=== PATIENT | female | born 1950 | race Native Hawaiian/Other Pacific Islander ===

== ENCOUNTER 2016-01-30 08:44 | Inpatient (IN) | payer OTHER ==
[~2016-01-30 08:44] MED LIST: BENZ1TAB43 PO; BUDE1AER5 INH; BUDEPRION150 MG PO; IPRASOL5 IN; KLONOPIN1 MG PO; LAXATIVE1 TAB PO; NASONEX50 MCG/AC; NORVASC10 MG PO; OXYBUTYNIN5 M1 PO; POLY3350 PO; SIMVASTATIN40 MG PO; TIOTCAP2 INH; TOVIAZ4 MG OR; TRAM50TA PO; TRAZODONE100 MG PO; VENTOLIN HFA IN; [UNRECOGNIZED DRUG - CODE] PO
== END 2016-03-01 08:00 | disposition still patient (30) ==
LOC: PAVA 08:44
PROVIDERS: ADMIT Family Medicine
DX: Z51.89 Encounter for other specified aftercare (principal)

== ENCOUNTER 2016-03-01 09:00 | Inpatient (IN) | payer OTHER | END 2016-04-01 08:43 | disposition still patient (30) | LOC: PAVA 09:00 | PROVIDERS: ADMIT Family Medicine | DX: Z51.89 Encounter for other specified aftercare (principal) ==

== ENCOUNTER 2016-03-06 06:00 | Outpatient (CLI) | payer OTHER | END 2016-03-06 07:00 | disposition home or self-care (01) | LOC: LAB 06:00 | DX: E11.9 Type 2 diabetes mellitus without complications (principal); K21.9 Gastro-esophageal reflux disease without esophagitis; I25.10 Atherosclerotic heart disease of native coronary artery without angina pectoris | CPT/HCPCS: 36415; 83036 ==

== ENCOUNTER 2016-04-01 09:28 | Inpatient (IN) | payer OTHER | END 2016-04-29 08:20 | disposition still patient (30) | LOC: PAVA 09:28 | PROVIDERS: ADMIT Family Medicine | DX: Z51.89 Encounter for other specified aftercare (principal) ==

== ENCOUNTER 2016-04-25 13:31 | Outpatient (CLI) | payer OTHER | END 2016-04-25 19:02 | disposition home or self-care (01) | LOC: RAD 13:31 → ED 13:31 | DX: S82.192A Other fracture of upper end of left tibia, initial encounter for closed fracture (principal); M25.562 Pain in left knee; M25.462 Effusion, left knee ==

== ENCOUNTER 2016-04-29 08:54 | Inpatient (IN) | payer OTHER | END 2016-05-30 08:05 | disposition still patient (30) | LOC: PAVA 08:54 | PROVIDERS: ADMIT Family Medicine | DX: Z51.89 Encounter for other specified aftercare (principal) | CPT/HCPCS: 97163 ==

== ENCOUNTER 2016-05-01 04:30 | Outpatient (CLI) | payer OTHER ==
[2016-05-01 05:45] LABS: PLATELET COUNT 194 K/uL (152-353)
[2016-05-01 06:01] LABS: SODIUM 139 mmol/L (136-145)
== END 2016-05-01 19:10 | disposition home or self-care (01) ==
LOC: LAB 04:30
PROVIDERS: Family Medicine
DX: R53.83 Other fatigue (principal); R50.81 Fever presenting with conditions classified elsewhere
CPT/HCPCS: 80053; 80164; 81000; 85027; 87804

== ENCOUNTER 2016-05-19 10:41 | Outpatient (CLI) | payer OTHER | END 2016-05-19 19:14 | disposition home or self-care (01) | LOC: LAB 10:41 | DX: I10 Essential (primary) hypertension (principal); N39.0 Urinary tract infection, site not specified; E55.9 Vitamin D deficiency, unspecified; R82.5 Elevated urine levels of drugs, medicaments and biological substances; R82.99 Other abnormal findings in urine | CPT/HCPCS: 81000; 82306; 82607; 87077; 87086; 87088; 87186 ==

== ENCOUNTER 2016-05-25 14:05 | Outpatient (CLI) | payer OTHER | END 2016-05-25 19:30 | disposition home or self-care (01) | LOC: RAD 14:05 | DX: S82.192A Other fracture of upper end of left tibia, initial encounter for closed fracture (principal) ==

== ENCOUNTER 2016-05-26 19:20 | Outpatient (CLI) | payer OTHER | END 2016-05-26 21:00 | LOC: RAD 19:20 | DX: M25.562 Pain in left knee (principal); S82.115A Nondisplaced fracture of left tibial spine, initial encounter for closed fracture ==

== ENCOUNTER 2016-05-30 09:57 | Inpatient (IN) | payer OTHER | END 2016-06-29 08:33 | disposition still patient (30) | LOC: PAVA 09:57 | PROVIDERS: ADMIT Family Medicine | DX: Z51.89 Encounter for other specified aftercare (principal) ==

== ENCOUNTER 2016-06-01 08:11 | Outpatient (CLI) | payer OTHER | END 2016-06-01 09:11 | disposition home or self-care (01) | LOC: LAB 08:11 | DX: E11.9 Type 2 diabetes mellitus without complications (principal) | CPT/HCPCS: 36415; 83036 ==

== ENCOUNTER 2016-06-23 10:48 | Outpatient (CLI) | payer OTHER | END 2016-06-23 19:44 | disposition home or self-care (01) | LOC: RAD 10:48 | DX: S82.115A Nondisplaced fracture of left tibial spine, initial encounter for closed fracture (principal); M25.562 Pain in left knee ==

== ENCOUNTER 2016-06-27 01:19 | Outpatient (CLI) | payer OTHER | END 2016-06-27 19:07 | disposition home or self-care (01) | LOC: LAB 01:19 | DX: Z16.24 Resistance to multiple antibiotics (principal) | CPT/HCPCS: 87081 ==

== ENCOUNTER 2016-06-29 09:00 | Inpatient (IN) | payer OTHER | END 2016-07-30 08:13 | disposition still patient (30) | LOC: PAVA 09:00 | PROVIDERS: ADMIT Family Medicine | DX: Z51.89 Encounter for other specified aftercare (principal) ==

== ENCOUNTER 2016-07-30 08:33 | Inpatient (IN) | payer OTHER | END 2016-08-29 14:59 | disposition still patient (30) | LOC: PAVA 08:33 | PROVIDERS: ADMIT Family Medicine | DX: Z51.89 Encounter for other specified aftercare (principal) ==

== ENCOUNTER 2016-08-04 12:49 | Outpatient (CLI) | payer OTHER | END 2016-08-04 19:11 | disposition home or self-care (01) | LOC: RAD 12:49 | DX: S82.115A Nondisplaced fracture of left tibial spine, initial encounter for closed fracture (principal); M25.562 Pain in left knee ==

== ENCOUNTER 2016-08-29 15:17 | Inpatient (IN) | payer OTHER | END 2016-09-29 08:42 | disposition still patient (30) | LOC: PAVA 15:17 | PROVIDERS: ADMIT Family Medicine | DX: Z51.89 Encounter for other specified aftercare (principal) ==

== ENCOUNTER 2016-08-31 06:20 | Outpatient (CLI) | payer OTHER | END 2016-08-31 07:20 | disposition home or self-care (01) | LOC: LAB 06:20 | DX: E11.9 Type 2 diabetes mellitus without complications (principal) | CPT/HCPCS: 83036 ==

== ENCOUNTER 2016-09-29 09:29 | Inpatient (IN) | payer OTHER | END 2016-10-30 08:13 | disposition still patient (30) | LOC: PAVA 09:29 → EDBD 10-30 08:13 → PAVA 10-30 08:13 | PROVIDERS: ADMIT Family Medicine | DX: Z51.89 Encounter for other specified aftercare (principal) ==

== ENCOUNTER 2016-09-29 14:38 | Outpatient (CLI) | payer OTHER | END 2016-09-29 19:11 | disposition home or self-care (01) | LOC: RAD 14:38 | DX: Z01.818 Encounter for other preprocedural examination (principal); Z01.811 Encounter for preprocedural respiratory examination; Z01.810 Encounter for preprocedural cardiovascular examination ==

== ENCOUNTER 2016-09-30 07:36 | Outpatient (CLI) | payer OTHER ==
[2016-09-30 08:52] LABS: POTASSIUM 3.8 mmol/L (3.6-5.2); SODIUM 146 mmol/L (136-145)
[2016-09-30 09:12] LABS: PLATELET COUNT 184 K/uL (152-353)
== END 2016-09-30 19:41 | disposition home or self-care (01) ==
LOC: LABW 07:36 → RESP 09:00 → LABW 19:41
PROVIDERS: Family Medicine
DX: Z01.818 Encounter for other preprocedural examination (principal); Z01.811 Encounter for preprocedural respiratory examination; Z01.810 Encounter for preprocedural cardiovascular examination
CPT/HCPCS: 36415; 80053; 85027; 93005; 94640; 94664

== ENCOUNTER 2016-10-30 08:38 | Inpatient (IN) | payer OTHER | END 2016-11-29 09:10 | disposition still patient (30) | LOC: PAVA 08:38 → EDBD 11-29 09:10 → PAVA 11-29 09:10 | PROVIDERS: ADMIT Family Medicine | DX: Z51.89 Encounter for other specified aftercare (principal) ==

== ENCOUNTER 2016-11-02 06:14 | Outpatient (CLI) | payer OTHER ==
[2016-11-02 06:39] LABS: PLATELET COUNT 192 K/uL (152-353)
[2016-11-02 06:46] LABS: POTASSIUM 3.5 mmol/L (3.6-5.2)
== END 2016-11-02 18:57 | disposition home or self-care (01) ==
LOC: LAB 06:14 → EDBD 06:14 → LAB 18:57
PROVIDERS: Family Medicine
DX: Z79.899 Other long term (current) drug therapy (principal); Z51.81 Encounter for therapeutic drug level monitoring; Z13.220 Encounter for screening for lipoid disorders
CPT/HCPCS: 80053; 80061; 80164; 85027

== ENCOUNTER 2016-11-29 09:34 | Inpatient (IN) | payer OTHER | END 2016-12-30 10:27 | disposition still patient (30) | LOC: PAVA 09:34 → EDBD 09:34 → PAVA 12-30 10:27 | PROVIDERS: ADMIT Family Medicine ==

== ENCOUNTER 2016-11-30 06:22 | Outpatient (CLI) | payer OTHER | END 2016-11-30 07:25 | disposition home or self-care (01) | LOC: LAB 06:22 → EDBD 06:22 → LAB 07:25 | DX: E11.9 Type 2 diabetes mellitus without complications (principal) | CPT/HCPCS: 36415; 83036 ==

== ENCOUNTER 2016-12-30 12:54 | Inpatient (IN) | payer OTHER | END 2017-01-29 08:15 | disposition still patient (30) | LOC: PAVA 12:54 | PROVIDERS: ADMIT Family Medicine ==

== ENCOUNTER 2017-01-25 12:58 | Outpatient (CLI) | payer OTHER | END 2017-01-25 18:57 | disposition home or self-care (01) | LOC: RAD 12:58 | DX: M54.5 Low back pain (principal) ==

== ENCOUNTER 2017-01-29 09:13 | Inpatient (IN) | payer OTHER ==
[2017-02-19] MEDS ORDERED: ZANTAC 75 PO (15:24)
[2017-02-19] MEDS ORDERED: VESICARE5 MG PO (15:26)
[2017-02-19] MEDS ORDERED: TOPAMAX50 MG PO (15:26)
[2017-02-19] MEDS ORDERED: ZIPR80CA PO (15:27)
[2017-02-19] MEDS ORDERED: CETI10TA PO (15:28)
[2017-02-19] MEDS ORDERED: DENO60SO SC (15:29)
[2017-02-19] MEDS ORDERED: CYCL10TA35 PO (15:30)
[2017-02-19] MEDS ORDERED: TRAM50TA PO (15:32)
[2017-02-19] MEDS ORDERED: ARTIFI TEARS OP (15:32)
[2017-02-19] MEDS ORDERED: CLON0.5T36 PO (15:33)
[2017-02-19] MEDS ORDERED: DIVA250T2 PO (15:34)
[2017-02-19] MEDS ORDERED: DOCU100C10 PO (15:35)
[2017-02-19] MEDS ORDERED: DONE5TAB PO (15:35)
[2017-02-19] MEDS ORDERED: LEXAPRO20 MG PO (15:36)
[2017-02-19] MEDS ORDERED: GABA300C2 PO (15:37)
[2017-02-19] MEDS ORDERED: MOBIC15 MG PO (15:43)
[2017-02-19] MEDS ORDERED: METFTAB PO (15:44)
[2017-02-19] MEDS ORDERED: MAGNSUS68 PO (15:47)
[2017-02-19] MEDS ORDERED: PRED5TAB3 PO (15:48)
[2017-02-19] MEDS ORDERED: SEROQUEL100 MG PO (15:49)
[2017-02-19] MEDS ORDERED: FINGERSTIX (15:50)
== END 2017-03-01 08:35 | disposition still patient (30) ==
LOC: PAVA 09:13
PROVIDERS: ADMIT Family Medicine

== ENCOUNTER 2017-02-01 11:27 | Outpatient (CLI) | payer OTHER | END 2017-02-01 12:30 | disposition home or self-care (01) | LOC: RAD 11:27 | DX: M25.572 Pain in left ankle and joints of left foot (principal) ==

== ENCOUNTER 2017-03-01 09:18 | Inpatient (IN) | payer OTHER ==
[~2017-03-01 09:18] MED LIST changes: +ARTIFI TEARS OP; +CETI10TA PO; +CLON0.5T36 PO; +CYCL10TA35 PO; +DENO60SO SC; +DIVA250T2 PO; +DOCU100C10 PO; +DONE5TAB PO; +FINGERSTIX; +GABA300C2 PO; +LEXAPRO20 MG PO; +MAGNSUS68 PO; +METFTAB PO; +MOBIC15 MG PO; +PRED5TAB3 PO; +SEROQUEL100 MG PO; +TOPAMAX50 MG PO; +VESICARE5 MG PO; +ZANTAC 75 PO; +ZIPR80CA PO
== END 2017-04-01 08:35 | disposition still patient (30) ==
LOC: PAVA 09:18
PROVIDERS: ADMIT Family Medicine

== ENCOUNTER 2017-03-03 06:03 | Outpatient (CLI) | payer OTHER | END 2017-03-03 21:33 | disposition home or self-care (01) | LOC: LAB 06:03 | DX: R73.09 Other abnormal glucose (principal) | CPT/HCPCS: 83036 ==

== ENCOUNTER 2017-04-01 09:45 | Inpatient (IN) | payer OTHER | END 2017-04-29 08:10 | disposition still patient (30) | LOC: PAVA 09:45 | PROVIDERS: ADMIT Family Medicine ==

== ENCOUNTER 2017-04-29 09:11 | Inpatient (IN) | payer OTHER | END 2017-05-30 08:00 | disposition still patient (30) | LOC: PAVA 09:11 | PROVIDERS: ADMIT Family Medicine ==

== ENCOUNTER 2017-05-10 03:19 | Outpatient (CLI) | payer OTHER ==
[2017-05-10 03:33] LABS: PLATELET COUNT 172 K/uL (152-353)
[2017-05-10 04:58] LABS: POTASSIUM 3.9 mmol/L (3.6-5.2)
== END 2017-05-10 21:29 | disposition home or self-care (01) ==
LOC: LAB 03:19
PROVIDERS: Family Medicine
DX: J44.9 Chronic obstructive pulmonary disease, unspecified (principal); I10 Essential (primary) hypertension
CPT/HCPCS: 36415; 80053; 80164; 85027

== ENCOUNTER 2017-05-30 09:00 | Inpatient (IN) | payer OTHER | END 2017-06-29 08:14 | disposition still patient (30) | LOC: PAVA 09:00 | PROVIDERS: ADMIT Family Medicine ==

== ENCOUNTER 2017-05-31 06:14 | Outpatient (CLI) | payer OTHER | END 2017-05-31 23:31 | disposition home or self-care (01) | LOC: LABW 06:14 | DX: E11.9 Type 2 diabetes mellitus without complications (principal) | CPT/HCPCS: 83036 ==

== ENCOUNTER 2017-06-04 11:49 | Outpatient (CLI) | payer OTHER | END 2017-06-04 20:27 | disposition home or self-care (01) | LOC: LAB 11:49 | DX: Z79.899 Other long term (current) drug therapy (principal) | CPT/HCPCS: 36415; 83036 ==

== ENCOUNTER 2017-06-29 08:54 | Inpatient (IN) | payer OTHER | END 2017-07-30 08:23 | disposition still patient (30) | LOC: PAVA 08:54 | PROVIDERS: ADMIT Family Medicine ==

== ENCOUNTER 2017-07-30 08:49 | Inpatient (IN) | payer OTHER | END 2017-08-29 14:17 | disposition still patient (30) | LOC: PAVA 08:49 | PROVIDERS: ADMIT Family Medicine ==

== ENCOUNTER 2017-08-02 03:48 | Outpatient (CLI) | payer OTHER | END 2017-08-02 21:57 | disposition home or self-care (01) | LOC: LAB 03:48 | DX: Z51.81 Encounter for therapeutic drug level monitoring (principal) | CPT/HCPCS: 82310 ==

== ENCOUNTER 2017-08-29 14:38 | Inpatient (IN) | payer OTHER | END 2017-09-29 08:00 | disposition still patient (30) | LOC: PAVA 14:38 | PROVIDERS: ADMIT Family Medicine ==

== ENCOUNTER 2017-09-01 06:04 | Outpatient (CLI) | payer OTHER | END 2017-09-01 22:07 | disposition home or self-care (01) | LOC: LAB 06:04 | DX: E11.9 Type 2 diabetes mellitus without complications (principal) | CPT/HCPCS: 83036 ==

== ENCOUNTER 2017-09-29 09:00 | Inpatient (IN) | payer OTHER | END 2017-10-30 09:59 | disposition still patient (30) | LOC: PAVA 09:00 | PROVIDERS: ADMIT Family Medicine ==

== ENCOUNTER 2017-10-19 07:52 | Emergency (ER) | payer OTHER ==
[~2017-10-19] VITALS: Ht 167.6 cm; Wt 105.9 kg
[2017-10-19 07:52] VITALS: TEMP 97.5
[2017-10-19 09:35] LABS: PLATELET COUNT 186 K/uL (152-353)
[2017-10-19 10:03] LABS: POTASSIUM 3.8 mmol/L (3.6-5.2)
[2017-10-19 11:15] VITALS: BP 94/55
== END 2017-10-19 11:17 | disposition short-term general hospital (02) ==
LOC: ED 07:52
DX: S72.091A Other fracture of head and neck of right femur, initial encounter for closed fracture (principal); W18.39XA Other fall on same level, initial encounter; Y92.092 Bedroom in other non-institutional residence as the place of occurrence of the external cause
CPT/HCPCS: 36415; 80053; 85027; 96374; 96375; 99284; J1885; J2270

== ENCOUNTER 2017-10-27 06:04 | Outpatient (CLI) | payer OTHER | END 2017-10-27 23:52 | disposition home or self-care (01) | LOC: LAB 06:04 | DX: D64.9 Anemia, unspecified (principal) | CPT/HCPCS: 85014; 85018 ==

== ENCOUNTER 2017-10-30 10:15 | Inpatient (IN) | payer OTHER | END 2017-11-29 08:42 | disposition still patient (30) | LOC: PAVA 10:15 | PROVIDERS: ADMIT Family Medicine ==

== ENCOUNTER 2017-11-05 05:15 | Outpatient (CLI) | payer OTHER ==
[2017-11-05 14:40] LABS: PLATELET COUNT 432 K/uL (152-353)
[2017-11-05 14:42] LABS: POTASSIUM 4.2 mmol/L (3.6-5.2)
== END 2017-11-05 23:23 | disposition home or self-care (01) ==
LOC: LAB 05:15
PROVIDERS: Family Medicine
DX: Z01.812 Encounter for preprocedural laboratory examination (principal); I25.10 Atherosclerotic heart disease of native coronary artery without angina pectoris; E11.9 Type 2 diabetes mellitus without complications; Z01.810 Encounter for preprocedural cardiovascular examination
CPT/HCPCS: 36415; 80053; 80061; 80164; 84443; 85027; 85610; 93005

== ENCOUNTER 2017-11-05 08:31 | Outpatient (CLI) | payer OTHER | END 2017-11-05 23:24 | disposition home or self-care (01) | LOC: RAD 08:31 | DX: Z01.810 Encounter for preprocedural cardiovascular examination (principal) ==

== ENCOUNTER 2017-11-12 16:38 | Emergency (ER) | payer OTHER ==
[~2017-11-12] VITALS: Ht 167.6 cm; Wt 105.7 kg
[2017-11-12 18:26] LABS: PLATELET COUNT 244 K/uL (152-353)
[2017-11-12 20:07] LABS: PARTIAL THROMBOPLASTIN TIME 26.4 SECONDS (24.5-33.6)
[2017-11-12 21:05] VITALS: BP 112/53; TEMP 98.6
== END 2017-11-12 21:07 ==
LOC: ED 16:38
PROVIDERS: Family Medicine
DX: L76.22 Postprocedural hemorrhage of skin and subcutaneous tissue following other procedure (principal); Y83.8 Other surgical procedures as the cause of abnormal reaction of the patient, or of later complication, without mention of misadventure at the time of the procedure; Y92.89 Other specified places as the place of occurrence of the external cause; D62 Acute posthemorrhagic anemia; I10 Essential (primary) hypertension; E11.9 Type 2 diabetes mellitus without complications; F03.90 Unspecified dementia, unspecified severity, without behavioral disturbance, psychotic disturbance, mood disturbance, and anxiety
CPT/HCPCS: 36415; 80053; 85027; 85610; 85730; 99284

== ENCOUNTER 2017-11-13 08:06 | Outpatient (CLI) | payer OTHER ==
[2017-11-13 08:36] LABS: PLATELET COUNT 252 K/uL (152-353)
== END 2017-11-13 19:03 | disposition home or self-care (01) ==
LOC: LAB 08:06
PROVIDERS: Family Medicine
DX: D64.89 Other specified anemias (principal)
CPT/HCPCS: 36415; 85027

== ENCOUNTER 2017-11-18 05:53 | Outpatient (CLI) | payer OTHER ==
[2017-11-18 06:29] LABS: PLATELET COUNT 360 K/uL (152-353)
== END 2017-11-18 22:06 | disposition home or self-care (01) ==
LOC: LAB 05:53
PROVIDERS: Family Medicine
DX: D64.9 Anemia, unspecified (principal)
CPT/HCPCS: 85027

== ENCOUNTER 2017-11-20 16:07 | Outpatient (CLI) | payer OTHER ==
[2017-11-20 17:29] LABS: PLATELET COUNT 304 K/uL (152-353)
== END 2017-11-20 19:57 | disposition home or self-care (01) ==
LOC: LAB 16:07
PROVIDERS: Family Medicine
DX: D64.9 Anemia, unspecified (principal)
CPT/HCPCS: 85027

== ENCOUNTER 2017-11-22 15:32 | Emergency (ER) | payer OTHER ==
[~2017-11-22] VITALS: Ht 167.6 cm; Wt 105.7 kg
[2017-11-22 15:30] VITALS: TEMP 97.9
[2017-11-22 16:04] LABS: PLATELET COUNT 343 K/uL (152-353)
[2017-11-22 16:10] LABS: POTASSIUM 4.4 mmol/L (3.6-5.2)
[2017-11-22 17:35] VITALS: BP 107/53
== END 2017-11-22 17:35 | disposition short-term general hospital (02) ==
LOC: ED 15:32
DX: T81.89XA Other complications of procedures, not elsewhere classified, initial encounter (principal); Z96.641 Presence of right artificial hip joint
CPT/HCPCS: 36415; 80053; 83605; 85027; 99284

== ENCOUNTER 2017-11-22 17:39 | Outpatient (CLI) | payer OTHER | END 2017-11-22 18:57 | disposition short-term general hospital (02) | LOC: AMB 17:39 | DX: T81.89XA Other complications of procedures, not elsewhere classified, initial encounter (principal); Z96.641 Presence of right artificial hip joint | CPT/HCPCS: A0425; A0427 ==

== ENCOUNTER 2017-11-29 09:07 | Inpatient (IN) | payer OTHER | END 2017-12-10 10:54 | disposition short-term general hospital (02) | LOC: PAVA 09:07 | PROVIDERS: ADMIT Family Medicine ==

== ENCOUNTER 2018-01-19 13:20 | Inpatient (IN) | payer OTHER | END 2018-01-29 08:34 | disposition still patient (30) | LOC: PAVB 13:20 | PROVIDERS: ADMIT Family Medicine ==

== ENCOUNTER 2018-01-20 06:07 | Outpatient (CLI) | payer OTHER ==
[2018-01-20 06:27] LABS: PLATELET COUNT 240 K/uL (152-353)
[2018-01-20 07:12] LABS: POTASSIUM 4.1 mmol/L (3.6-5.2)
== END 2018-01-20 19:09 | disposition home or self-care (01) ==
LOC: LAB 06:07
PROVIDERS: Family Medicine
DX: I10 Essential (primary) hypertension (principal); Z51.81 Encounter for therapeutic drug level monitoring; Z16.24 Resistance to multiple antibiotics; Z79.899 Other long term (current) drug therapy
CPT/HCPCS: 36415; 80053; 80164; 82306; 83036; 83540; 83735; 85027; 87081

== ENCOUNTER 2018-01-27 05:02 | Outpatient (CLI) | payer OTHER | END 2018-01-27 19:18 | disposition home or self-care (01) | LOC: LAB 05:02 | PROVIDERS: Family Medicine | DX: Z51.81 Encounter for therapeutic drug level monitoring (principal) | CPT/HCPCS: 80061 ==

== ENCOUNTER 2018-01-29 09:24 | Inpatient (IN) | payer OTHER | END 2018-03-01 11:06 | disposition still patient (30) | LOC: PAVB 09:24 | PROVIDERS: ADMIT Family Medicine ==

== ENCOUNTER 2018-01-31 06:29 | Outpatient (CLI) | payer OTHER | END 2018-01-31 20:25 | disposition home or self-care (01) | LOC: LAB 06:29 | DX: M81.0 Age-related osteoporosis without current pathological fracture (principal) | CPT/HCPCS: 82310 ==

== ENCOUNTER 2018-03-01 11:30 | Inpatient (IN) | payer OTHER | END 2018-04-01 10:56 | disposition still patient (30) | LOC: PAVB 11:30 | PROVIDERS: ADMIT Family Medicine ==

== ENCOUNTER 2018-03-02 16:01 | Outpatient (CLI) | payer OTHER | END 2018-03-02 21:37 | disposition home or self-care (01) | LOC: LAB 16:01 | DX: R39.15 Urgency of urination (principal); M54.5 Low back pain | CPT/HCPCS: 81000 ==

== ENCOUNTER 2018-04-01 11:22 | Inpatient (IN) | payer OTHER | END 2018-04-29 10:21 | disposition still patient (30) | LOC: PAVB 11:22 | PROVIDERS: ADMIT Family Medicine ==

== ENCOUNTER 2018-04-04 08:17 | Outpatient (CLI) | payer OTHER | END 2018-04-04 20:47 | disposition home or self-care (01) | LOC: LAB 08:17 | DX: E11.21 Type 2 diabetes mellitus with diabetic nephropathy (principal) | CPT/HCPCS: 36415; 83036 ==

== ENCOUNTER 2018-04-29 11:19 | Inpatient (IN) | payer OTHER | END 2018-05-30 10:41 | disposition still patient (30) | LOC: PAVB 11:19 | PROVIDERS: ADMIT Family Medicine ==

== ENCOUNTER 2018-05-30 11:30 | Inpatient (IN) | payer OTHER | END 2018-06-29 11:18 | disposition still patient (30) | LOC: PAVB 11:30 | PROVIDERS: ADMIT Family Medicine ==

== ENCOUNTER 2018-06-18 11:23 | Outpatient (CLI) | payer OTHER | END 2018-06-18 22:44 | disposition home or self-care (01) | LOC: RAD 11:23 | DX: M25.572 Pain in left ankle and joints of left foot (principal) ==

== ENCOUNTER 2018-06-18 14:26 | Outpatient (CLI) | payer OTHER | END 2018-06-18 22:44 | disposition home or self-care (01) | LOC: RAD 14:26 | DX: M25.472 Effusion, left ankle (principal); M25.572 Pain in left ankle and joints of left foot ==

== ENCOUNTER 2018-06-29 12:37 | Inpatient (IN) | payer OTHER | END 2018-07-30 08:40 | disposition still patient (30) | LOC: PAVB 12:37 | PROVIDERS: ADMIT Family Medicine | DX: Z51.89 Encounter for other specified aftercare (principal) ==

== ENCOUNTER 2018-06-30 06:36 | Outpatient (CLI) | payer OTHER ==
[2018-06-30 07:58] LABS: PLATELET COUNT 183 K/uL (152-353)
== END 2018-06-30 19:46 | disposition home or self-care (01) ==
LOC: LAB 06:36
PROVIDERS: Family Medicine
DX: E11.9 Type 2 diabetes mellitus without complications (principal); D50.8 Other iron deficiency anemias
CPT/HCPCS: 80053; 80164; 82306; 83036; 83540; 83735; 85027

== ENCOUNTER 2018-07-27 06:20 | Outpatient (CLI) | payer OTHER | END 2018-07-27 20:58 | disposition home or self-care (01) | LOC: LAB 06:20 | DX: Z51.81 Encounter for therapeutic drug level monitoring (principal) | CPT/HCPCS: 80164 ==

== ENCOUNTER 2018-07-30 09:37 | Inpatient (IN) | payer OTHER | END 2018-08-29 09:39 | disposition still patient (30) | LOC: PAVB 09:37 | PROVIDERS: ADMIT Family Medicine ==

== ENCOUNTER 2018-08-03 05:40 | Outpatient (CLI) | payer OTHER | END 2018-08-03 23:23 | disposition home or self-care (01) | LOC: LAB 05:40 | DX: E87.6 Hypokalemia (principal) | CPT/HCPCS: 82310 ==

== ENCOUNTER 2018-08-24 21:49 | Outpatient (CLI) | payer OTHER | END 2018-08-24 23:57 | disposition home or self-care (01) | LOC: LAB 21:49 | DX: M54.6 Pain in thoracic spine (principal) | CPT/HCPCS: 81000 ==

== ENCOUNTER 2018-08-29 11:33 | Inpatient (IN) | payer OTHER | END 2018-09-29 10:36 | disposition still patient (30) | LOC: PAVB 11:33 | PROVIDERS: ADMIT Family Medicine ==

== ENCOUNTER 2018-09-29 11:26 | Inpatient (IN) | payer OTHER | END 2018-10-30 16:27 | disposition still patient (30) | LOC: PAVB 11:26 | PROVIDERS: ADMIT Family Medicine ==

== ENCOUNTER 2018-10-05 03:20 | Outpatient (CLI) | payer OTHER | END 2018-10-05 23:41 | disposition home or self-care (01) | LOC: LAB 03:20 | DX: E11.21 Type 2 diabetes mellitus with diabetic nephropathy (principal) | CPT/HCPCS: 36415; 83036 ==

== ENCOUNTER 2018-10-30 17:14 | Inpatient (IN) | payer OTHER | END 2018-11-29 09:22 | disposition still patient (30) | LOC: PAVB 17:14 | PROVIDERS: ADMIT Family Medicine ==

== ENCOUNTER 2018-11-29 11:11 | Inpatient (IN) | payer OTHER | END 2018-12-30 08:15 | disposition still patient (30) | LOC: PAVB 11:11 → PAVA 12-16 11:11 | PROVIDERS: ADMIT Family Medicine ==

== ENCOUNTER 2018-12-30 10:09 | Inpatient (IN) | payer OTHER | END 2019-01-29 08:00 | disposition still patient (30) | LOC: PAVA 10:09 | PROVIDERS: ADMIT Family Medicine ==

== ENCOUNTER 2019-01-29 09:00 | Inpatient (IN) | payer OTHER | END 2019-03-01 07:57 | disposition still patient (30) | LOC: PAVA 09:00 | PROVIDERS: ADMIT Family Medicine ==

== ENCOUNTER 2019-01-31 05:14 | Outpatient (CLI) | payer OTHER | END 2019-01-31 20:12 | disposition home or self-care (01) | LOC: LAB 05:14 | DX: E87.6 Hypokalemia (principal) | CPT/HCPCS: 82310 ==

== ENCOUNTER 2019-03-01 08:01 | Inpatient (IN) | payer OTHER | END 2019-04-01 09:27 | disposition still patient (30) | LOC: PAVA 08:01 | PROVIDERS: ADMIT Family Medicine ==

== ENCOUNTER 2019-04-01 06:22 | Outpatient (CLI) | payer OTHER | END 2019-04-01 20:38 | disposition home or self-care (01) | LOC: LABW 06:22 | DX: E11.9 Type 2 diabetes mellitus without complications (principal) | CPT/HCPCS: 83036 ==

== ENCOUNTER 2019-04-01 09:33 | Inpatient (IN) | payer OTHER | END 2019-04-30 12:43 | disposition still patient (30) | LOC: PAVA 09:33 | PROVIDERS: ADMIT Family Medicine ==

== ENCOUNTER 2019-04-30 12:48 | Inpatient (IN) | payer OTHER | END 2019-05-31 08:56 | disposition still patient (30) | LOC: PAVA 12:48 | PROVIDERS: ADMIT Family Medicine ==

== ENCOUNTER 2019-05-31 09:01 | Inpatient (IN) | payer OTHER | END 2019-06-30 07:57 | disposition still patient (30) | LOC: PAVA 09:01 | PROVIDERS: ADMIT Family Medicine ==

== ENCOUNTER 2019-06-30 08:18 | Inpatient (IN) | payer OTHER | END 2019-07-31 08:09 | disposition still patient (30) | LOC: PAVA 08:18 | PROVIDERS: ADMIT Family Medicine | CPT/HCPCS: 87635; U0002 ==

== ENCOUNTER 2019-07-03 06:29 | Outpatient (CLI) | payer OTHER ==
[2019-07-03 07:19] LABS: POTASSIUM 4.7 mmol/L (3.6-5.2)
[2019-07-03 08:19] LABS: PLATELET COUNT 160 K/uL (152-353)
== END 2019-07-03 19:21 | disposition home or self-care (01) ==
LOC: LAB 06:29
PROVIDERS: Family Medicine
DX: I10 Essential (primary) hypertension (principal); E11.9 Type 2 diabetes mellitus without complications; Z79.899 Other long term (current) drug therapy; I25.10 Atherosclerotic heart disease of native coronary artery without angina pectoris
CPT/HCPCS: 80053; 80164; 82306; 83036; 83540; 83735; 85027

== ENCOUNTER 2019-07-15 21:26 | Outpatient (CLI) | payer OTHER | END 2019-07-15 21:47 | disposition home or self-care (01) | LOC: RAD 21:26 | DX: M25.552 Pain in left hip (principal); W19.XXXA Unspecified fall, initial encounter ==

== ENCOUNTER 2019-07-31 08:14 | Inpatient (IN) | payer OTHER | END 2019-08-30 08:24 | disposition still patient (30) | LOC: PAVA 08:14 | PROVIDERS: ADMIT Family Medicine | DX: S72.142D Displaced intertrochanteric fracture of left femur, subsequent encounter for closed fracture with routine healing (principal); U07.1 COVID-19; J44.9 Chronic obstructive pulmonary disease, unspecified; R13.11 Dysphagia, oral phase; M62.81 Muscle weakness (generalized); Z47.1 Aftercare following joint replacement surgery; M25.652 Stiffness of left hip, not elsewhere classified; M25.552 Pain in left hip | CPT/HCPCS: 87635; U0002 ==

== ENCOUNTER 2019-08-28 11:15 | Outpatient (CLI) | payer OTHER ==
[~2019-08-28 11:15] MED LIST changes: +ALBU90AE13 INH; -VENTOLIN HFA IN
== END 2019-08-28 16:00 | disposition home or self-care (01) ==
LOC: RAD 11:15
DX: R05 Cough (principal)

== ENCOUNTER 2019-08-30 08:29 | Inpatient (IN) | payer OTHER ==
[~2019-08-30 08:29] MED LIST changes: -ALBU90AE13 INH; +VENTOLIN HFA IN
== END 2019-09-30 08:21 | disposition still patient (30) ==
LOC: PAVA 08:29
PROVIDERS: ADMIT Family Medicine
DX: S72.142D Displaced intertrochanteric fracture of left femur, subsequent encounter for closed fracture with routine healing (principal); U07.1 COVID-19; J44.9 Chronic obstructive pulmonary disease, unspecified; R13.11 Dysphagia, oral phase; M62.81 Muscle weakness (generalized); Z47.1 Aftercare following joint replacement surgery; M25.652 Stiffness of left hip, not elsewhere classified; M25.552 Pain in left hip
CPT/HCPCS: 82310; 87635; U0002

== ENCOUNTER 2019-09-11 06:20 | Outpatient (CLI) | payer OTHER | END 2019-09-11 19:16 | disposition home or self-care (01) | LOC: LAB 06:20 | DX: M81.0 Age-related osteoporosis without current pathological fracture (principal) | CPT/HCPCS: 82310 ==

== ENCOUNTER 2019-09-30 08:35 | Inpatient (IN) | payer OTHER ==
[~2019-09-30 08:35] MED LIST changes: +ALBU90AE13 INH; -VENTOLIN HFA IN
[2019-10-31] MEDS ORDERED: ABILIFY MYCITE5 MG PO (17:19)
[2019-10-31] MEDS ORDERED: CLARITIN10 M1 PO (17:21)
[2019-10-31] MEDS ORDERED: DITROPAN XL10 MG PO (17:29)
[2019-10-31] MEDS ORDERED: FE TABS325 MG PO (17:30)
[2019-10-31] MEDS ORDERED: FURO20TA67 PO (17:31)
[2019-10-31] MEDS ORDERED: MAGN400T4 PO (17:32)
[2019-10-31] MEDS ORDERED: MOBIC7.5 M1 PO (17:35)
[2019-10-31] MEDS ORDERED: TYLENOL325 MG PO (17:51)
[2019-10-31] MEDS ORDERED: SYSTANE OPTH (17:56)
[2019-10-31] MEDS ORDERED: POLYETHYLENE GL1 PO1 PO (18:04)
[2019-10-31] MEDS ORDERED: WELLBUTRIN PO (18:11)
[2019-10-31] MEDS ORDERED: FLUTMIS6 INH (18:13)
[2019-10-31] MEDS ORDERED: AMIODARONE HYD200 MG PO (18:14)
[2019-10-31] MEDS ORDERED: SENNOSIDES (SE8.6 MG PO (18:19)
[2019-10-31] MEDS ORDERED: SEROQUEL300 MG PO (18:21)
[2019-10-31] MEDS ORDERED: PREVASTATIN PO (18:22)
[2019-10-31] MEDS ORDERED: CALCIUM CARBON600 MG PO (18:27)
[2019-10-31] MEDS ORDERED: CIMETIDINE PO (18:29)
[2019-10-31] MEDS ORDERED: DIVA500T2 PO (18:49)
[2019-10-31] MEDS ORDERED: ATROVENT NAS (19:08)
[2019-10-31] MEDS ORDERED: ZIPR80CA PO (19:13)
== END 2019-10-31 10:38 | disposition still patient (30) ==
LOC: PAVA 08:35
PROVIDERS: ADMIT Family Medicine
CPT/HCPCS: 80053; 83036; 83880; 85027

== ENCOUNTER 2019-10-02 11:00 | Outpatient (CLI) | payer OTHER | END 2019-10-02 16:00 | disposition home or self-care (01) | LOC: LAB 11:00 | DX: E11.9 Type 2 diabetes mellitus without complications (principal) | CPT/HCPCS: 83036 ==

== ENCOUNTER 2019-10-24 16:31 | Outpatient (CLI) | payer OTHER ==
[~2019-10-24 16:31] MED LIST changes: -ALBU90AE13 INH; +VENTOLIN HFA IN
[2019-10-24 16:58] LABS: PLATELET COUNT 189 K/uL (152-353)
[2019-10-24 17:23] LABS: POTASSIUM 4.4 mmol/L (3.6-5.2)
== END 2019-10-24 20:35 | disposition home or self-care (01) ==
LOC: LAB 16:31
PROVIDERS: Family Medicine
DX: R60.0 Localized edema (principal)
CPT/HCPCS: 80053; 83880; 85027

== ENCOUNTER 2019-10-24 18:14 | Outpatient (CLI) | payer OTHER | END 2019-10-24 20:38 | disposition home or self-care (01) | LOC: LAB 18:14 | DX: R60.0 Localized edema (principal) ==

== ENCOUNTER 2019-10-31 07:42 | Inpatient (IN) | payer OTHER ==
[2019-10-31] VITALS (10 sets, daily range): BP systolic 99–179; BP diastolic 48–68; TEMP 97.3–101.3; Ht 165.1 cm; Wt 113.0 kg
[~2019-10-31] VITALS: Ht 165.1 cm; Wt 113.0 kg
[~2019-10-31 07:42] MED LIST changes: +ALBU90AE13 INH; -VENTOLIN HFA IN
[2019-10-31 08:43] LABS: POTASSIUM 4.1 mmol/L (3.6-5.2)
[2019-10-31 09:22] LABS: PLATELET COUNT 195 K/uL (152-353)
[2019-10-31] MEDS ORDERED: ABILIFY MYCITE5 MG PO (17:19)
[2019-10-31] MEDS ORDERED: CLARITIN10 M1 PO (17:21)
[2019-10-31] MEDS ORDERED: DITROPAN XL10 MG PO (17:29)
[2019-10-31] MEDS ORDERED: FE TABS325 MG PO (17:30)
[2019-10-31] MEDS ORDERED: FURO20TA67 PO (17:31)
[2019-10-31] MEDS ORDERED: MAGN400T4 PO (17:32)
[2019-10-31] MEDS ORDERED: MOBIC7.5 M1 PO (17:35)
[2019-10-31] MEDS ORDERED: TYLENOL325 MG PO (17:51)
[2019-10-31] MEDS ORDERED: SYSTANE OPTH (17:56)
[2019-10-31] MEDS ORDERED: POLYETHYLENE GL1 PO1 PO (18:04)
[2019-10-31] MEDS ORDERED: WELLBUTRIN PO (18:11)
[2019-10-31] MEDS ORDERED: FLUTMIS6 INH (18:13)
[2019-10-31] MEDS ORDERED: AMIODARONE HYD200 MG PO (18:14)
[2019-10-31] MEDS ORDERED: SENNOSIDES (SE8.6 MG PO (18:19)
[2019-10-31] MEDS ORDERED: SEROQUEL300 MG PO (18:21)
[2019-10-31] MEDS ORDERED: PREVASTATIN PO (18:22)
[2019-10-31] MEDS ORDERED: CALCIUM CARBON600 MG PO (18:27)
[2019-10-31] MEDS ORDERED: CIMETIDINE PO (18:29)
[2019-10-31] MEDS ORDERED: DIVA500T2 PO (18:49)
[2019-10-31] MEDS ORDERED: ATROVENT NAS (19:08)
[2019-10-31] MEDS ORDERED: ZIPR80CA PO (19:13)
[2019-11-01 04:00] VITALS: BP 113/51; TEMP 98.2
[2019-11-01 08:00] VITALS: BP 106/40; TEMP 102.5
[2019-11-01 09:49] LABS: POTASSIUM 3.9 mmol/L (3.6-5.2)
[2019-11-01 09:51] LABS: PLATELET COUNT 169 K/uL (152-353)
--- NOTE | 2019-11-01 11:54 | NUR ---
FUNG D/C PER MD ORDERS AT THIS TIME. BULB INTACT. PT TOLERATED WELL. WILL MONITOR FOR OUT PUT
[2019-11-01 12:00] VITALS: BP 91/51; TEMP 98.5
--- NOTE | 2019-11-01 12:08 | NUR ---
0830 TEMP 102.5 TYLENOL PO GIVEN 0951 TEMP 101.5 1130 TEMP 98.5
--- NOTE | 2019-11-01 13:05 | NUR ---
IV SITE NOT FLUSHING. IV WAS D/C'd WITH CATH INTACT. NO S/S OF INFILTRATION NOTED
--- NOTE | 2019-11-01 14:57 | NUR ---
Pamela SPOKE WITH DIA IN PHARM ABOUT RECOMMENDATIONS FOR NEW ABX TO TREAT POSTIIVE URINE CULTURE THAT SHOWED GRAM NEG RODS PER MD. . HUGO IN PHARM STATED THAT SHE TALKED IT OVER WITH BJ AND RECOMMENDATIONS MADE TO DC ROCHEPIN AND START INVANZ 1GM EVERY 24HR. DR CONTRERAS INFORMED AND AWARE OF NEW ABX AND DC THE ROCEPHIN AND START INVANZ.
[2019-11-01 16:00] VITALS: BP 103/59; TEMP 98
--- NOTE | 2019-11-01 19:52 | NUR ---
1030 DR CONTRERAS HERE AT THIS TIME. ABNOMRAL LABS INCLUDING POSTIIVE BC AND URINE CULTURE RESULTS REPORTED TO DR CONTRERAS. [address] CONTRERAS.
--- NOTE | 2019-11-01 19:56 | NUR ---
1530 DR CONTRERAS INFORMED THAT DIA CALLED AND STATED LEXAPRO MAY CAUSE ENLONGATED MI INTERVAL. PER BEN ON RECCOMENDATION FRO PHARM LEXAPRO DC'D AT THIS TIME.
[2019-11-01 20:00] VITALS: BP 126/44; TEMP 98.2
[2019-11-02] VITALS: BP 128/66; TEMP 98.3
[2019-11-02 04:00] VITALS: BP 113/59; TEMP 98.3
[2019-11-02 06:15] LABS: PLATELET COUNT 166 K/uL (152-353)
[2019-11-02 06:40] LABS: POTASSIUM 3.6 mmol/L (3.6-5.2)
[2019-11-02 08:00] VITALS: BP 116/47; TEMP 99.4
[2019-11-02 12:00] VITALS: BP 99/53; TEMP 98.4
[2019-11-02 16:00] VITALS: BP 115/99; TEMP 98.8
--- NOTE | 2019-11-02 17:55 | NUR ---
RECEIVED CRITICAL REPORT FROM [facility] OF LAB OF A POSITIVE BLOOD CULTURE ON BLOOD COLLECTED ON 10/31/19 @ [address]. NOT[address]IED DR[address] CONTRERAS OF SAME. NO NEW ORDERS RECEIVED AT THIS TIME.
[2019-11-02 20:00] VITALS: BP 110/50; TEMP 98.3
[2019-11-03] VITALS: BP 100/53; TEMP 98.1
[2019-11-03 04:00] VITALS: BP 108/56; TEMP 98.3
[2019-11-03 05:04] LABS: PLATELET COUNT 160 K/uL (152-353)
[2019-11-03 08:00] VITALS: BP 112/55; TEMP 96
[2019-11-03 12:00] VITALS: BP 133/71; TEMP 98
== END 2019-11-03 18:45 | DRG 690 ==
LOC: ED 07:44 → MED/SURG 11:21
PROVIDERS: Family Medicine; ADMIT Family Medicine
DX: N39.0 Urinary tract infection, site not specified (principal); E44.1 Mild protein-calorie malnutrition; Z68.41 Body mass index [BMI] 40.0-44.9, adult; M48.56XA Collapsed vertebra, not elsewhere classified, lumbar region, initial encounter for fracture; R41.82 Altered mental status, unspecified; M81.8 Other osteoporosis without current pathological fracture; D64.89 Other specified anemias; F79 Unspecified intellectual disabilities; I10 Essential (primary) hypertension; E66.01 Morbid (severe) obesity due to excess calories; E83.41 Hypermagnesemia; B96.4 Proteus (mirabilis) (morganii) as the cause of diseases classified elsewhere; J45.998 Other asthma; G30.8 Other Alzheimer's disease; F02.80 Dementia in other diseases classified elsewhere, unspecified severity, without behavioral disturbance, psychotic disturbance, mood disturbance, and anxiety; E11.9 Type 2 diabetes mellitus without complications; F25.0 Schizoaffective disorder, bipolar type
CPT/HCPCS: 36415; 51702; 80053; 81000; 82728; 83605; 83735; 84100; 85027; 85379; 87040; 87077; 87086; 87088; 87186; 87205; 87502; 87635; 87651; 94760; 96365; 99284; J0696; J1335; J3490; U0003

== ENCOUNTER 2019-10-31 10:55 | Inpatient (IN) | payer OTHER ==
[2019-10-31] MEDS ORDERED: ABILIFY MYCITE5 MG PO (17:19)
[2019-10-31] MEDS ORDERED: CLARITIN10 M1 PO (17:21)
[2019-10-31] MEDS ORDERED: DITROPAN XL10 MG PO (17:29)
[2019-10-31] MEDS ORDERED: FE TABS325 MG PO (17:30)
[2019-10-31] MEDS ORDERED: FURO20TA67 PO (17:31)
[2019-10-31] MEDS ORDERED: MAGN400T4 PO (17:32)
[2019-10-31] MEDS ORDERED: MOBIC7.5 M1 PO (17:35)
[2019-10-31] MEDS ORDERED: TYLENOL325 MG PO (17:51)
[2019-10-31] MEDS ORDERED: SYSTANE OPTH (17:56)
[2019-10-31] MEDS ORDERED: POLYETHYLENE GL1 PO1 PO (18:04)
[2019-10-31] MEDS ORDERED: WELLBUTRIN PO (18:11)
[2019-10-31] MEDS ORDERED: FLUTMIS6 INH (18:13)
[2019-10-31] MEDS ORDERED: AMIODARONE HYD200 MG PO (18:14)
[2019-10-31] MEDS ORDERED: SENNOSIDES (SE8.6 MG PO (18:19)
[2019-10-31] MEDS ORDERED: SEROQUEL300 MG PO (18:21)
[2019-10-31] MEDS ORDERED: PREVASTATIN PO (18:22)
[2019-10-31] MEDS ORDERED: CALCIUM CARBON600 MG PO (18:27)
[2019-10-31] MEDS ORDERED: CIMETIDINE PO (18:29)
[2019-10-31] MEDS ORDERED: DIVA500T2 PO (18:49)
[2019-10-31] MEDS ORDERED: ATROVENT NAS (19:08)
[2019-10-31] MEDS ORDERED: ZIPR80CA PO (19:13)
== END 2019-11-30 09:22 | disposition still patient (30) ==
LOC: PAVA 10:55
PROVIDERS: ADMIT Family Medicine

== ENCOUNTER 2019-11-05 07:39 | Outpatient (CLI) | payer OTHER ==
[~2019-11-05 07:39] MED LIST changes: +ABILIFY MYCITE5 MG PO; +AMIODARONE HYD200 MG PO; +ATROVENT NAS; +CALCIUM CARBON600 MG PO; +CIMETIDINE PO; +CLARITIN10 M1 PO; +DITROPAN XL10 MG PO; +DIVA500T2 PO; +FE TABS325 MG PO; +FLUTMIS6 INH; +FURO20TA67 PO; +MAGN400T4 PO; +MOBIC7.5 M1 PO; +POLYETHYLENE GL1 PO1 PO; +PREVASTATIN PO; +SENNOSIDES (SE8.6 MG PO; +SEROQUEL300 MG PO; +SYSTANE OPTH; +TYLENOL325 MG PO; +WELLBUTRIN PO
[2019-11-05 08:25] LABS: PLATELET COUNT 255 K/uL (152-353)
[2019-11-05 08:51] LABS: POTASSIUM 4.4 mmol/L (3.6-5.2)
== END 2019-11-05 22:49 | disposition home or self-care (01) ==
LOC: LAB 07:39
PROVIDERS: Family Medicine
DX: E61.2 Magnesium deficiency (principal)
CPT/HCPCS: 36415; 80053; 83735; 84100; 85027

== ENCOUNTER 2019-11-30 10:36 | Inpatient (IN) | payer OTHER | END 2019-12-31 08:00 | disposition still patient (30) | LOC: PAVA 10:36 | PROVIDERS: ADMIT Family Medicine ==

== ENCOUNTER 2019-12-31 09:00 | Inpatient (IN) | payer OTHER | END 2020-01-30 08:35 | disposition still patient (30) | LOC: PAVA 09:00 | PROVIDERS: ADMIT Family Medicine; ATTEND Family Medicine ==

== ENCOUNTER 2020-01-04 07:57 | Outpatient (CLI) | payer OTHER ==
[2020-01-04 08:10] LABS: PLATELET COUNT 152 K/uL (152-353)
[2020-01-04 08:33] LABS: POTASSIUM 4.9 mmol/L (3.6-5.2)
== END 2020-01-04 20:16 | disposition home or self-care (01) ==
LOC: LAB 07:57
PROVIDERS: Family Medicine
DX: I10 Essential (primary) hypertension (principal); Z79.899 Other long term (current) drug therapy; E55.9 Vitamin D deficiency, unspecified; E11.9 Type 2 diabetes mellitus without complications; I25.10 Atherosclerotic heart disease of native coronary artery without angina pectoris
CPT/HCPCS: 80053; 80061; 80164; 82306; 83036; 83540; 83735; 85027

== ENCOUNTER 2020-01-08 08:38 | Outpatient (CLI) | payer OTHER | END 2020-01-08 19:05 | disposition home or self-care (01) | LOC: RAD 08:38 | DX: M25.561 Pain in right knee (principal); M25.551 Pain in right hip; W19.XXXA Unspecified fall, initial encounter ==

== ENCOUNTER 2020-01-14 11:25 | Outpatient (CLI) | payer OTHER | END 2020-01-14 20:35 | disposition home or self-care (01) | LOC: RAD 11:25 | PROVIDERS: ATTEND Family Medicine | DX: M25.562 Pain in left knee (principal); M25.462 Effusion, left knee ==

== ENCOUNTER 2020-01-30 09:04 | Inpatient (IN) | payer OTHER | END 2020-03-01 08:28 | disposition still patient (30) | LOC: PAVA 09:04 | PROVIDERS: ADMIT Family Medicine; ATTEND Family Medicine ==

== ENCOUNTER 2020-02-28 12:53 | Outpatient (CLI) | payer OTHER ==
[2020-02-28 13:11] LABS: PLATELET COUNT 308 K/uL (152-353)
[2020-02-28 13:21] LABS: POTASSIUM 4.2 mmol/L (3.6-5.2)
== END 2020-02-28 20:24 | disposition home or self-care (01) ==
LOC: LAB 12:53
PROVIDERS: ATTEND Family Medicine
DX: R51.9 Headache, unspecified (principal); R05 Cough; R50.9 Fever, unspecified; R68.89 Other general symptoms and signs; R79.89 Other specified abnormal findings of blood chemistry; R79.82 Elevated C-reactive protein (CRP); N39.0 Urinary tract infection, site not specified
CPT/HCPCS: 80053; 81000; 85027; 86140; 87040; 87077; 87086; 87088; 87186

== ENCOUNTER 2020-02-28 19:32 | Emergency (ER) | payer OTHER ==
[~2020-02-28] VITALS: Ht 170.2 cm; Wt 111.6 kg
[2020-02-28 20:21] LABS: PLATELET COUNT 304 K/uL (152-353)
[2020-02-28 20:34] LABS: POTASSIUM 4.6 mmol/L (3.6-5.2)
[2020-02-28 20:54] LABS: PARTIAL THROMBOPLASTIN TIME 23.9 SECONDS (24.5-33.6)
[2020-02-28 23:05] VITALS: BP 101/51; TEMP 99.8
== END 2020-02-28 23:05 ==
LOC: ED 19:42
PROVIDERS: Hospitalist
PROC: 0T9B70Z Drainage of Bladder with Drainage Device, Via Natural or Artificial Opening (ICD-10-PCS; principal; 2020-02-28)
DX: U07.1 COVID-19 (principal); R50.9 Fever, unspecified; I50.9 Heart failure, unspecified; I48.20 Chronic atrial fibrillation, unspecified; N39.0 Urinary tract infection, site not specified; R51.9 Headache, unspecified; R05 Cough; R68.89 Other general symptoms and signs; R79.89 Other specified abnormal findings of blood chemistry; R79.82 Elevated C-reactive protein (CRP)
CPT/HCPCS: 36415; 36600; 51702; 80053; 81000; 82550; 82805; 83605; 83880; 84484; 85027; 85610; 85730; 86140; 87040; 87077; 87086; 87088; 87186; 93005; 96360; 96365; 96375; 99284; J0696; J1940

== ENCOUNTER 2020-03-01 08:48 | Inpatient (IN) | payer OTHER | END 2020-04-01 13:10 | disposition still patient (30) | LOC: PAVA 08:48 | PROVIDERS: ADMIT Family Medicine; ATTEND Family Medicine ==

== ENCOUNTER 2020-04-01 07:32 | Outpatient (CLI) | payer OTHER | END 2020-04-01 19:14 | disposition home or self-care (01) | LOC: LAB 07:32 | PROVIDERS: ATTEND Family Medicine | DX: E11.9 Type 2 diabetes mellitus without complications (principal); M81.0 Age-related osteoporosis without current pathological fracture | CPT/HCPCS: 82310; 83036 ==

== ENCOUNTER 2020-04-01 14:14 | Inpatient (IN) | payer OTHER | END 2020-04-29 08:40 | disposition still patient (30) | LOC: PAVA 14:14 | PROVIDERS: ADMIT Family Medicine; ATTEND Family Medicine ==

== ENCOUNTER 2020-04-29 08:59 | Inpatient (IN) | payer OTHER | END 2020-05-30 08:33 | disposition still patient (30) | LOC: PAVA 08:59 | PROVIDERS: ADMIT Family Medicine; ATTEND Family Medicine ==

== ENCOUNTER 2020-05-15 15:45 | Outpatient (CLI) | payer OTHER | END 2020-05-15 22:23 | disposition home or self-care (01) | LOC: INF 15:45 | PROVIDERS: ATTEND Internal Medicine | DX: Z23 Encounter for immunization (principal) | CPT/HCPCS: 96372 ==

== ENCOUNTER 2020-05-30 09:37 | Inpatient (IN) | payer OTHER ==
[2020-06-26] MEDS ORDERED: INCRUSE EL62.5 MCG/I PO (04:56)
[2020-06-26] MEDS ORDERED: MELATONIN MAXIM10 MG PO (04:59)
[2020-06-26] MEDS ORDERED: VITAMIN D125 MCG PO (05:04)
[2020-06-26] MEDS ORDERED: BENEPROTEIN6 GM PO (05:11)
== END 2020-06-29 11:57 | disposition still patient (30) ==
LOC: PAVA 09:37
PROVIDERS: ADMIT Family Medicine; ATTEND Family Medicine

== ENCOUNTER 2020-06-06 09:19 | Outpatient (CLI) | payer OTHER | END 2020-06-06 22:15 | disposition home or self-care (01) | LOC: INF 09:19 | PROVIDERS: ATTEND Internal Medicine | DX: Z23 Encounter for immunization (principal) | CPT/HCPCS: 96372 ==

== ENCOUNTER 2020-06-26 18:51 | Outpatient (CLI) | payer OTHER ==
[~2020-06-26 18:51] MED LIST changes: +BENEPROTEIN6 GM PO; +INCRUSE EL62.5 MCG/I PO; +MELATONIN MAXIM10 MG PO; +VITAMIN D125 MCG PO
== END 2020-06-26 21:57 | disposition home or self-care (01) ==
LOC: LAB 18:51
PROVIDERS: ATTEND Family Medicine
DX: D64.89 Other specified anemias (principal)
CPT/HCPCS: 36415; 85014; 85018

== ENCOUNTER 2020-06-29 12:08 | Inpatient (IN) | payer OTHER ==
[~2020-06-29] VITALS: Ht 170.2 cm; Wt 77.1 kg
== END 2020-07-30 13:24 | disposition still patient (30) ==
LOC: PAVA 12:08
PROVIDERS: ADMIT Family Medicine; ATTEND Family Medicine

== ENCOUNTER 2020-07-02 08:30 | Outpatient (CLI) | payer OTHER ==
[2020-07-02 10:59] LABS: PLATELET COUNT 334 K/uL (152-353)
[2020-07-02 17:29] LABS: POTASSIUM 4.8 mmol/L (3.6-5.2)
== END 2020-07-02 19:43 | disposition home or self-care (01) ==
LOC: LAB 08:30
PROVIDERS: ATTEND Family Medicine
DX: E11.9 Type 2 diabetes mellitus without complications (principal); I10 Essential (primary) hypertension; I25.10 Atherosclerotic heart disease of native coronary artery without angina pectoris
CPT/HCPCS: 80053; 80164; 82306; 83036; 83540; 83735; 85027

== ENCOUNTER 2020-07-30 14:22 | Inpatient (IN) | payer OTHER | END 2020-08-29 08:00 | disposition still patient (30) | LOC: PAVA 14:22 | PROVIDERS: ADMIT Family Medicine; ATTEND Family Medicine ==

== ENCOUNTER 2020-08-02 10:05 | Outpatient (CLI) | payer OTHER | END 2020-08-02 20:01 | disposition home or self-care (01) | LOC: US 10:05 | PROVIDERS: ATTEND Family Medicine | DX: N39.0 Urinary tract infection, site not specified (principal) ==

== ENCOUNTER 2020-08-23 09:16 | Outpatient (CLI) | payer OTHER | END 2020-08-23 23:59 | disposition home or self-care (01) | LOC: CT 09:16 | PROVIDERS: ATTEND Specialist | DX: R31.0 Gross hematuria (principal) ==

== ENCOUNTER 2020-08-29 09:00 | Inpatient (IN) | payer OTHER | END 2020-09-29 08:00 | disposition still patient (30) | LOC: PAVA 09:00 | PROVIDERS: ADMIT Family Medicine; ATTEND Family Medicine ==

== ENCOUNTER → 2020-09-18 | Outpatient (CLI) | payer OTHER ==
[2020-09-18 21:00] LABS: PLATELET COUNT 152 K/uL (152-353)
[2020-09-18 21:08] LABS: POTASSIUM 4.2 mmol/L (3.6-5.2)
== END ==
LOC: LAB 20:42
PROVIDERS: ATTEND Family Medicine
DX: R41.82 Altered mental status, unspecified (principal); R30.9 Painful micturition, unspecified; R82.998 Other abnormal findings in urine
CPT/HCPCS: 80053; 81000; 85027; 87077; 87086; 87088; 87185; 87186

== ENCOUNTER 2020-09-29 09:00 | Inpatient (IN) | payer OTHER | END 2020-10-30 09:08 | disposition still patient (30) | LOC: PAVA 09:00 | PROVIDERS: ADMIT Family Medicine; ATTEND Family Medicine ==

== ENCOUNTER 2020-10-02 10:32 | Outpatient (CLI) | payer OTHER | END 2020-10-02 12:11 | disposition home or self-care (01) | LOC: LAB 10:32 | PROVIDERS: ATTEND Family Medicine | DX: E11.9 Type 2 diabetes mellitus without complications (principal); M81.0 Age-related osteoporosis without current pathological fracture | CPT/HCPCS: 82310; 83036 ==

== ENCOUNTER 2020-10-07 15:37 | Outpatient (CLI) | payer OTHER | END 2020-10-07 21:47 | disposition home or self-care (01) | LOC: RAD 15:37 | PROVIDERS: ATTEND Family Medicine | DX: N20.2 Calculus of kidney with calculus of ureter (principal) ==

== ENCOUNTER 2020-10-09 15:34 | Outpatient (CLI) | payer OTHER | END 2020-10-09 19:06 | disposition home or self-care (01) | LOC: CT 15:34 | PROVIDERS: ATTEND Family Medicine | DX: S00.83XA Contusion of other part of head, initial encounter (principal); W19.XXXA Unspecified fall, initial encounter ==

== ENCOUNTER 2020-10-14 13:17 | Outpatient (CLI) | payer OTHER | END 2020-10-14 19:14 | disposition home or self-care (01) | LOC: RAD 13:17 | PROVIDERS: ATTEND Family Medicine | DX: R93.41 Abnormal radiologic findings on diagnostic imaging of renal pelvis, ureter, or bladder (principal); N20.2 Calculus of kidney with calculus of ureter ==

== ENCOUNTER 2020-10-30 09:45 | Inpatient (IN) | payer OTHER | END 2020-11-29 08:10 | disposition still patient (30) | LOC: PAVA 09:45 | PROVIDERS: ADMIT Family Medicine; ATTEND Family Medicine ==

== ENCOUNTER 2020-11-16 17:22 | Emergency (ER) | payer OTHER ==
[~2020-11-16] VITALS: Ht 170.2 cm; Wt 110.7 kg
[2020-11-16 18:12] LABS: PLATELET COUNT 155 K/uL (152-353)
[2020-11-16 18:17] LABS: POTASSIUM 5.2 mmol/L (3.6-5.2)
[2020-11-16 20:28] VITALS: BP 173/77; TEMP 98.2
== END 2020-11-16 20:28 ==
LOC: ED 17:22
PROVIDERS: Emergency Medicine
DX: J06.9 Acute upper respiratory infection, unspecified (principal); G89.29 Other chronic pain
CPT/HCPCS: 80048; 84484; 85027; 93005; 99283

== ENCOUNTER 2020-12-30 08:25 | Outpatient (CLI) | payer OTHER ==
[2020-12-30 08:43] LABS: PLATELET COUNT 190 K/uL (152-353)
[2020-12-30 08:56] LABS: POTASSIUM 4.6 mmol/L (3.6-5.2)
== END 2020-12-30 19:20 | disposition home or self-care (01) ==
LOC: LAB 08:25
PROVIDERS: ATTEND Family Medicine
DX: E11.9 Type 2 diabetes mellitus without complications (principal); I25.10 Atherosclerotic heart disease of native coronary artery without angina pectoris; I10 Essential (primary) hypertension; F20.89 Other schizophrenia
CPT/HCPCS: 80053; 80061; 80164; 82306; 83036; 83540; 83735; 85027

== ENCOUNTER 2021-01-29 09:05 | Inpatient (IN) | payer OTHER | END 2021-03-01 07:56 | disposition still patient (30) | LOC: PAVA 09:05 | PROVIDERS: ADMIT Family Medicine; ATTEND Family Medicine ==

== ENCOUNTER 2021-03-01 08:12 | Inpatient (IN) | payer OTHER | END 2021-04-01 08:51 | disposition still patient (30) | LOC: PAVA 08:12 | PROVIDERS: ADMIT Family Medicine; ATTEND Family Medicine ==

== ENCOUNTER 2021-04-01 07:41 | Outpatient (CLI) | payer OTHER | END 2021-04-01 19:22 | disposition home or self-care (01) | LOC: LAB 07:41 | PROVIDERS: ATTEND Family Medicine | DX: E11.9 Type 2 diabetes mellitus without complications (principal) | CPT/HCPCS: 83036 ==

== ENCOUNTER 2021-04-01 10:48 | Inpatient (IN) | payer OTHER ==
[~2021-04-01] VITALS: Ht 154.9 cm; Wt 107.5 kg
[2021-04-22 13:18] VITALS: BP 124/50; TEMP 102.3; Ht 154.9 cm; Wt 107.5 kg
== END 2021-04-29 08:54 | disposition still patient (30) ==
LOC: PAVA 10:48
PROVIDERS: ADMIT Family Medicine; ATTEND Family Medicine

== ENCOUNTER 2021-04-02 07:39 | Outpatient (CLI) | payer OTHER | END 2021-04-02 19:30 | disposition home or self-care (01) | LOC: LAB 07:39 | PROVIDERS: ATTEND Family Medicine | DX: M81.0 Age-related osteoporosis without current pathological fracture (principal) | CPT/HCPCS: 82310 ==

== ENCOUNTER 2021-04-22 07:42 | Inpatient (IN) | payer OTHER ==
[~2021-04-22] VITALS: Ht 162.6 cm; Wt 103.9 kg
[2021-04-22 07:53] VITALS: BP 169/108; TEMP 97.5
[2021-04-22 07:57] VITALS: BP 158/86
[2021-04-22 08:10] VITALS: BP 119/80
[2021-04-22 08:18] LABS: PLATELET COUNT 149 K/uL (152-353)
[2021-04-22 08:26] LABS: POTASSIUM 4.1 mmol/L (3.6-5.2)
[2021-04-22 16:00] VITALS: BP 100/56; TEMP 99
[2021-04-22 20:03] VITALS: BP 89/50; TEMP 98.5
[2021-04-23 00:08] VITALS: BP 96/48; TEMP 98.7
[2021-04-23 03:53] VITALS: BP 114/45; TEMP 98.8
[2021-04-23 08:00] VITALS: BP 119/56; TEMP 98.9
[2021-04-23 09:51] LABS: PLATELET COUNT 128 K/uL (152-353)
[2021-04-23 10:07] LABS: POTASSIUM 3.7 mmol/L (3.6-5.2)
[2021-04-23 12:00] VITALS: BP 104/58; TEMP 99.1
[2021-04-23 16:00] VITALS: BP 122/59; TEMP 98.5
[2021-04-23 20:00] VITALS: BP 106/50; TEMP 99
[2021-04-24] VITALS: BP 102/43; TEMP 98.8
[2021-04-24 04:00] VITALS: BP 100/48; TEMP 99
[2021-04-24 05:41] LABS: PLATELET COUNT 140 K/uL (152-353)
[2021-04-24 05:54] LABS: POTASSIUM 3.9 mmol/L (3.6-5.2)
[2021-04-24 08:00] VITALS: BP 115/53; TEMP 98.6
[2021-04-24 12:00] VITALS: BP 130/65; TEMP 98.4
== END 2021-04-24 12:45 | DRG 178 ==
LOC: ED 07:42 → MED/SURG 09:34
PROVIDERS: Emergency Medicine; ADMIT Family Medicine; ATTEND Family Medicine
DX: J69.0 Pneumonitis due to inhalation of food and vomit (principal); N39.0 Urinary tract infection, site not specified; Z68.41 Body mass index [BMI] 40.0-44.9, adult; J44.0 Chronic obstructive pulmonary disease with (acute) lower respiratory infection; J44.1 Chronic obstructive pulmonary disease with (acute) exacerbation; F31.89 Other bipolar disorder; I10 Essential (primary) hypertension; E66.01 Morbid (severe) obesity due to excess calories
CPT/HCPCS: 36600; 51702; 80053; 82805; 83735; 83880; 84100; 84484; 85027; 87040; 87635; 93005; 94640; 94664; 94667; 94668; 94760; 96365; 96375; 99284; J1650; J1940; J1956; J3370; J3490; U0003

== ENCOUNTER 2021-04-29 10:47 | Outpatient (CLI) | payer OTHER | END 2021-04-29 19:06 | disposition home or self-care (01) | LOC: RAD 10:47 | PROVIDERS: ATTEND Family Medicine | DX: J18.9 Pneumonia, unspecified organism (principal) ==

== ENCOUNTER 2021-04-29 11:00 | Inpatient (IN) | payer OTHER | END 2021-05-30 08:09 | disposition still patient (30) | LOC: PAVA 11:00 | PROVIDERS: ADMIT Family Medicine; ATTEND Family Medicine ==

== ENCOUNTER 2021-05-30 08:32 | Inpatient (IN) | payer OTHER | END 2021-06-29 10:52 | disposition still patient (30) | LOC: PAVA 08:32 | PROVIDERS: ADMIT Family Medicine; ATTEND Family Medicine ==

== ENCOUNTER 2021-06-29 03:43 | Inpatient (IN) | payer OTHER ==
[2021-07-16] MEDS ORDERED: TOBRADEX OPTH (21:24)
[2021-07-16] MEDS ORDERED: MUCINEX600 MG PO (21:27)
[2021-07-16] MEDS ORDERED: GUAIFENESIN/DEX1 SYP PO (21:28)
[2021-07-16] MEDS ORDERED: ALBUSOL INH (21:31)
[2021-07-16] MEDS ORDERED: MAGNSUS68 PO (21:32)
[2021-07-16] MEDS ORDERED: BENZONATATE100 MG PO (21:34)
[2021-07-16] MEDS ORDERED: PRAVASTATIN10 MG PO (21:47)
[2021-07-16] MEDS ORDERED: SENNA PLUS 50-81 CAP PO (21:49)
[2021-07-17] MEDS ORDERED: HEMORRHOID RE (09:09)
== END 2021-07-30 09:25 | disposition still patient (30) ==
LOC: PAVA 03:43
PROVIDERS: ADMIT Family Medicine; ATTEND Family Medicine

== ENCOUNTER 2021-06-30 07:00 | Outpatient (CLI) | payer OTHER ==
[2021-06-30 08:43] LABS: PLATELET COUNT 120 K/uL (152-353)
[2021-06-30 08:58] LABS: POTASSIUM 4.4 mmol/L (3.6-5.2)
== END 2021-06-30 18:51 | disposition home or self-care (01) ==
LOC: LAB 07:00
PROVIDERS: ATTEND Family Medicine
DX: I25.10 Atherosclerotic heart disease of native coronary artery without angina pectoris (principal); I10 Essential (primary) hypertension; E11.9 Type 2 diabetes mellitus without complications
CPT/HCPCS: 80053; 80164; 82306; 82728; 83036; 83540; 83550; 83735; 85027

== ENCOUNTER 2021-07-16 12:01 | Inpatient (IN) | payer OTHER ==
[~2021-07-16] VITALS: Ht 170.2 cm; Wt 110.9 kg
[2021-07-16 12:04] VITALS: BP 115/51; TEMP 97.5
[2021-07-16 12:37] LABS: PLATELET COUNT 165 K/uL (152-353)
[2021-07-16 12:51] LABS: POTASSIUM 4.4 mmol/L (3.6-5.2)
[2021-07-16 13:00] VITALS: BP 104/65
[2021-07-16 14:00] VITALS: BP 116/68
[2021-07-16 15:00] VITALS: BP 115/60
[2021-07-16 17:10] VITALS: BP 140/68; TEMP 98.6; Ht 170.2 cm; Wt 110.9 kg
[2021-07-16 20:00] VITALS: BP 126/59; TEMP 98.5
[2021-07-16] MEDS ORDERED: TOBRADEX OPTH (21:24)
[2021-07-16] MEDS ORDERED: MUCINEX600 MG PO (21:27)
[2021-07-16] MEDS ORDERED: GUAIFENESIN/DEX1 SYP PO (21:28)
[2021-07-16] MEDS ORDERED: ALBUSOL INH (21:31)
[2021-07-16] MEDS ORDERED: MAGNSUS68 PO (21:32)
[2021-07-16] MEDS ORDERED: BENZONATATE100 MG PO (21:34)
[2021-07-16] MEDS ORDERED: PRAVASTATIN10 MG PO (21:47)
[2021-07-16] MEDS ORDERED: SENNA PLUS 50-81 CAP PO (21:49)
[2021-07-17] VITALS: BP 100/66; TEMP 98.3
[2021-07-17 04:00] VITALS: BP 111/66; TEMP 98.4
[2021-07-17 07:12] LABS: PLATELET COUNT 153 K/uL (152-353)
[2021-07-17 07:28] LABS: POTASSIUM 4.1 mmol/L (3.6-5.2)
[2021-07-17 08:00] VITALS: BP 121/73; TEMP 98
[2021-07-17] MEDS ORDERED: HEMORRHOID RE (09:09)
[2021-07-17 12:00] VITALS: BP 124/59; TEMP 98.3
[2021-07-17 16:00] VITALS: BP 132/68; TEMP 98.5
[2021-07-17 20:00] VITALS: BP 109/60; TEMP 98.4
[2021-07-18] VITALS (7 sets, daily range): BP systolic 108–137; BP diastolic 51–74; TEMP 98.4–99
[2021-07-18 09:33] LABS: PLATELET COUNT 172 K/uL (152-353)
[2021-07-18 09:46] LABS: POTASSIUM 4.2 mmol/L (3.6-5.2)
[2021-07-19 04:00] VITALS: BP 115/53; TEMP 98.2
[2021-07-19 05:30] LABS: PLATELET COUNT 163 K/uL (152-353)
[2021-07-19 05:48] LABS: POTASSIUM 4.5 mmol/L (3.6-5.2)
[2021-07-19 08:37] VITALS: BP 134/76; TEMP 97.9
[2021-07-19 12:00] VITALS: BP 127/61; TEMP 98.2
[2021-07-19 16:13] VITALS: BP 133/66; TEMP 97.8
[2021-07-19 20:00] VITALS: BP 145/61; TEMP 98.08
[2021-07-19 20:09] VITALS: BP 131/68; TEMP 98.1
[2021-07-20 00:04] VITALS: BP 138/63; TEMP 98.2
[2021-07-20 07:13] LABS: POTASSIUM 4.4 mmol/L (3.6-5.2)
[2021-07-20 07:55] VITALS: BP 129/66; TEMP 97.7
[2021-07-20 08:35] LABS: PLATELET COUNT 197 K/uL (152-353)
[2021-07-20 12:00] VITALS: BP 144/64; TEMP 98.1
[2021-07-20 16:00] VITALS: BP 149/53; TEMP 98.1
[2021-07-20 20:11] VITALS: BP 135/76; TEMP 98.7
[2021-07-20 23:47] VITALS: BP 150/73; TEMP 97.9
[2021-07-21 04:00] VITALS: BP 112/66; TEMP 97.5
[2021-07-21 05:37] LABS: POTASSIUM 4.3 mmol/L (3.6-5.2)
[2021-07-21 05:41] LABS: PLATELET COUNT 199 K/uL (152-353)
[2021-07-21 08:00] VITALS: BP 154/74; TEMP 98.2
== END 2021-07-21 12:00 | DRG 690 ==
LOC: ED 12:01 → MED/SURG 15:00 → UNDODEPER 07-18 15:55 → MED/SURG 07-21 12:00
PROVIDERS: Emergency Medicine; ADMIT Family Medicine; ATTEND Family Medicine
DX: N39.0 Urinary tract infection, site not specified (principal); F01.51 Vascular dementia, unspecified severity, with behavioral disturbance; N17.8 Other acute kidney failure; B96.89 Other specified bacterial agents as the cause of diseases classified elsewhere; R53.81 Other malaise; D64.89 Other specified anemias; M81.8 Other osteoporosis without current pathological fracture; E88.09 Other disorders of plasma-protein metabolism, not elsewhere classified; K59.09 Other constipation; G31.89 Other specified degenerative diseases of nervous system; E66.01 Morbid (severe) obesity due to excess calories; E86.0 Dehydration; J44.9 Chronic obstructive pulmonary disease, unspecified; F25.0 Schizoaffective disorder, bipolar type; E11.22 Type 2 diabetes mellitus with diabetic chronic kidney disease; I12.9 Hypertensive chronic kidney disease with stage 1 through stage 4 chronic kidney disease, or unspecified chronic kidney disease; N18.32 Chronic kidney disease, stage 3b
CPT/HCPCS: 36415; 51702; 80053; 80164; 81000; 83735; 83880; 84100; 84484; 85027; 85610; 87077; 87086; 87088; 87186; 87635; 93005; 96360; 96361; 96365; 96375; 99284; A9576; J2185; U0003

== ENCOUNTER 2021-07-30 11:28 | Inpatient (IN) | payer OTHER ==
[~2021-07-30 11:28] MED LIST changes: +ALBUSOL INH; +BENZONATATE100 MG PO; +DIVA250T PO; -DIVA250T2 PO; +GUAIFENESIN/DEX1 SYP PO; +HEMORRHOID RE; +METF500T PO; -METFTAB PO; +MUCINEX600 MG PO; +PRAVASTATIN10 MG PO; +SENNA PLUS 50-81 CAP PO; +TOBRADEX OPTH
== END 2021-08-29 09:14 | disposition still patient (30) ==
LOC: PAVA 11:28 → PAVC 08-01 15:42
PROVIDERS: ADMIT Family Medicine; ATTEND Family Medicine

== ENCOUNTER 2021-08-29 12:42 | Inpatient (IN) | payer OTHER ==
[2021-09-02] MEDS ORDERED: NYAMYC100000 UNI EX (22:02)
== END 2021-09-29 09:08 | disposition still patient (30) ==
LOC: PAVC 12:42
PROVIDERS: ADMIT Family Medicine; ATTEND Family Medicine

== ENCOUNTER 2021-09-02 16:58 | Inpatient (IN) | payer OTHER ==
[~2021-09-02] VITALS: Ht 170.2 cm; Wt 98.6 kg
[2021-09-02 16:58] VITALS: BP 109/66; TEMP 98
[2021-09-02 17:30] LABS: PLATELET COUNT 171 K/uL (152-353)
[2021-09-02 17:36] LABS: POTASSIUM 4.8 mmol/L (3.6-5.2); SODIUM 138 mmol/L (136-145)
[2021-09-02 17:44] LABS: PARTIAL THROMBOPLASTIN TIME 26.1 SECONDS (24.5-33.6)
[2021-09-02 20:58] VITALS: BP 116/49; TEMP 98.1
[2021-09-02 21:55] VITALS: BP 116/49; TEMP 98.1; Ht 170.2 cm; Wt 98.6 kg
[2021-09-02] MEDS ORDERED: NYAMYC100000 UNI EX (22:02)
[2021-09-03] VITALS: BP 92/47; TEMP 97.7
[2021-09-03 04:00] VITALS: BP 108/55; TEMP 98
[2021-09-03 04:48] LABS: PLATELET COUNT 149 K/uL (152-353)
[2021-09-03 04:50] LABS: POTASSIUM 4.9 mmol/L (3.6-5.2)
[2021-09-03 07:47] VITALS: BP 110/65; TEMP 98.2
[2021-09-03 12:00] VITALS: BP 116/57; TEMP 97.9
[2021-09-03 16:00] VITALS: BP 128/52; TEMP 97.4
[2021-09-03 20:00] VITALS: BP 116/57; TEMP 97.4
[2021-09-04] VITALS: BP 126/57; TEMP 97.4
[2021-09-04 04:00] VITALS: BP 113/56; TEMP 97.7
[2021-09-04 05:48] LABS: PLATELET COUNT 145 K/uL (152-353)
[2021-09-04 06:06] LABS: POTASSIUM 4.1 mmol/L (3.6-5.2)
[2021-09-04 08:07] VITALS: BP 121/6; TEMP 97.9
[2021-09-04 12:17] VITALS: BP 117/56; TEMP 97.8
[2021-09-04 16:00] VITALS: BP 118/56; TEMP 97.8
[2021-09-04 20:00] VITALS: BP 118/56; TEMP 98.3
[2021-09-05] VITALS (8 sets, daily range): BP systolic 110–147; BP diastolic 51–81; TEMP 97.5–99
[2021-09-05 04:48] LABS: PLATELET COUNT 157 K/uL (152-353)
[2021-09-06 04:00] VITALS: BP 98/50; TEMP 98.3
[2021-09-06 05:00] LABS: PLATELET COUNT 214 K/uL (152-353)
[2021-09-06 06:53] LABS: POTASSIUM 4.1 mmol/L (3.6-5.2)
[2021-09-06 08:00] VITALS: BP 111/63; TEMP 98.5
[2021-09-06 12:00] VITALS: BP 136/62; TEMP 98.4
[2021-09-06 16:00] VITALS: BP 122/71; TEMP 98.6
[2021-09-06 19:49] VITALS: BP 127/71; TEMP 98.6
[2021-09-07] VITALS: BP 117/57; TEMP 97.8
[2021-09-07 04:00] VITALS: BP 120/73; TEMP 97.8
[2021-09-07 08:00] VITALS: BP 120/81; TEMP 98
[2021-09-07 12:00] VITALS: BP 117/77; TEMP 97.9
[2021-09-07 16:00] VITALS: BP 117/77; TEMP 97.9
[2021-09-07 20:00] VITALS: BP 109/51; TEMP 98.6
[2021-09-08] VITALS: BP 104/47; TEMP 98.6
[2021-09-08 04:00] VITALS: BP 104/54; TEMP 97.9
[2021-09-08 05:02] LABS: PLATELET COUNT 205 K/uL (152-353)
[2021-09-08 08:00] VITALS: BP 103/55; TEMP 97.5
[2021-09-08 12:00] VITALS: BP 118/72; TEMP 98.6
== END 2021-09-08 13:25 | DRG 178 ==
LOC: ED 16:58 → MED/SURG 20:26
PROVIDERS: ADMIT Emergency Medicine; ATTEND Family Medicine
DX: J15.0 Pneumonia due to Klebsiella pneumoniae (principal); N39.0 Urinary tract infection, site not specified; J44.0 Chronic obstructive pulmonary disease with (acute) lower respiratory infection; F03.91 Unspecified dementia, unspecified severity, with behavioral disturbance; N17.8 Other acute kidney failure; J15.29 Pneumonia due to other staphylococcus; B96.89 Other specified bacterial agents as the cause of diseases classified elsewhere; R41.0 Disorientation, unspecified; N39.498 Other specified urinary incontinence; R15.9 Full incontinence of feces; Z74.01 Bed confinement status; K59.09 Other constipation; M81.8 Other osteoporosis without current pathological fracture; D64.89 Other specified anemias; E66.01 Morbid (severe) obesity due to excess calories; E11.9 Type 2 diabetes mellitus without complications; F25.0 Schizoaffective disorder, bipolar type; I12.9 Hypertensive chronic kidney disease with stage 1 through stage 4 chronic kidney disease, or unspecified chronic kidney disease; N18.32 Chronic kidney disease, stage 3b; G25.2 Other specified forms of tremor; E86.0 Dehydration; E03.8 Other specified hypothyroidism
CPT/HCPCS: 36415; 36600; 51702; 80048; 80053; 80164; 81002; 81015; 82550; 82805; 83605; 83735; 83880; 84100; 84439; 84443; 84481; 84484; 85027; 85610; 85730; 87040; 87070; 87077; 87086; 87088; 87185; 87186; 87205; 87635; 93005; 94664; 94760; 96365; 96366; 99283; J1956; J2185; U0003

== ENCOUNTER 2021-09-09 14:51 | Outpatient (CLI) | payer OTHER ==
[~2021-09-09] VITALS: Ht 170.2 cm; Wt 44.6 kg
[~2021-09-09 14:51] MED LIST changes: +NYAMYC100000 UNI EX
[2021-09-09 15:00] VITALS: BP 110/68; TEMP 98.9
[2021-09-09 16:32] VITALS: BP 113/73; TEMP 98.6
--- NOTE | 2021-09-09 16:42 | NUR ---
1500 PT TO ROOM 1128 VIA WC ACCOMPANIED BY [facility]. VS OBTANED 1530 24GPIV TO MULTIPLE STICKS BY MULTIPLE STAFF. 1632 INFUSION COMPLETED AT THIS TIME. NO ADVERSE REACTIONS NOTED. PIV FLUSHED WITH 10ML NS CAPPED WITH CUROPS CAP. 1650 PT ASSISTED BACK TO [facility] VIA WC IN NO DISTRESS ACCOMPANIED BY [facility]OSPITAL STAFF.
--- NOTE | 2021-09-09 22:25 | NUR ---
PATIENT ARRIVED TO INFUSION UNIT FOR INFUSION OF MEROPENUM. OBTAINED VITAL SIGNS TEMP: 99.3, HR 66, RESP: 10, BP: 90/50, O2SAT 100% ON RA.
--- NOTE | 2021-09-09 22:33 | NUR ---
IV SITE 24G AT FLUSHED WITH 10ML OF SALINE. PATIENT WITH BLOOD RETURN. INITIATED INFUSION.
--- NOTE | 2021-09-09 23:01 | NUR ---
INFUSION COMPLETE. FLUSHED IV SITE WITH 10ML NACL. SALINE LOCKED. IV SITE WNL. OBTAINED VITAL SIGNS, TEMP: 98.1, HR:58, RESP:20, BP:89/50, O2SAT 93%. DISCHARGED CLIENT FROM UNIT VIA WHEELCHAIR.
== END 2021-09-09 18:54 | disposition home or self-care (01) ==
LOC: INF 14:51
PROVIDERS: ATTEND Family Medicine
DX: N39.0 Urinary tract infection, site not specified (principal)
CPT/HCPCS: 96365; 96366; J2185

== ENCOUNTER 2021-09-10 07:32 | Outpatient (CLI) | payer OTHER ==
[~2021-09-10] VITALS: Ht 170.2 cm; Wt 44.5 kg
[2021-09-10 07:40] VITALS: BP 103/70; TEMP 98.6
[2021-09-10 10:00] VITALS: BP 110/64; TEMP 98.8
[2021-09-10 14:52] VITALS: BP 124/70; TEMP 98.5
[2021-09-10 15:33] VITALS: BP 120/68; TEMP 98.7
== END 2021-09-10 18:50 | disposition home or self-care (01) ==
LOC: INF 07:32
PROVIDERS: ATTEND Family Medicine
DX: N39.0 Urinary tract infection, site not specified (principal)
CPT/HCPCS: 96365; 96366; J2185

== ENCOUNTER 2021-09-11 07:31 | Outpatient (CLI) | payer OTHER ==
[~2021-09-11] VITALS: Ht 170.2 cm; Wt 78.9 kg
[2021-09-11 09:09] VITALS: BP 118/69; TEMP 98.3
--- NOTE | 2021-09-11 09:09 | NUR ---
PT ARRIVED AT FACILITY VIA WC FOR OP INFUSION ACCOMPANIED BY [facility]. VS OBTAINED. 24G PIV TO LH FLUSHED WITH 10ML NS WITH NO COMPLICATIONS. PT DENIES PAIN AT SITE.
--- NOTE | 2021-09-11 09:29 | NUR ---
MEROPENEM STARTED INFUSING AT THIS TIME.
--- NOTE | 2021-09-11 09:45 | NUR ---
PT TOLERATING INFUSION WITH NO ADVERSE REACTIONS SUSPECTED. PT DENIES ANY COMLICATIONS.
[2021-09-11 10:10] VITALS: BP 114/56; TEMP 98.9
--- NOTE | 2021-09-11 10:10 | NUR ---
1009 INFUSION COMPLETED AT THIS TIME. PT TOLERATED WITH NO ADVERSE REACTIONS 24G PIV FLUSHED WITH 10ML NS. WITH NO COMPLAINTS SITE CAPPED WITH CUROS. VS OBTAINED.
--- NOTE | 2021-09-11 10:40 | NUR ---
1036 PT LEFT FACILITY VIA WC ACCOMPANIED BY [facility] STAFF. IN NO DISTRESS.
[2021-09-11 14:53] VITALS: BP 106/53; TEMP 97.7
--- NOTE | 2021-09-11 15:20 | NUR ---
1453 PT ARRIVED TO ROOM 1129 VIA WHEELCHAIR ACCOMPANIED BY [facility]. VS OBTAINED. 24G PIV TO RH. FLUSH WITH 10ML NS. PT DENIES PAIN. 1456 INFUSION STARTED AT THIS TIME. 1510 PT TOLERATED INFUSION WITH NO ADVERSE REACTIONS SUSPECTED. NO COMPLAINTS VOICED BY PT.
[2021-09-11 15:30] VITALS: BP 126/70; TEMP 98.7
--- NOTE | 2021-09-11 18:23 | NUR ---
1528 INFUSION COMPLETED 24G PIV TO RH FLUSHED WITH 10 ML NS PT DENIES ANY COMPLAINTS AT THIS TIME. 1540 PT LEFT FACILITY WITH [facility]AFF VIA WC IN NO DISTRESS. WILL RETURN TONIGHT FOR SCHEDULED INFUSION
--- NOTE | 2021-09-11 20:20 | NUR ---
PATIENT TO ROOM 1129 VIA LOPEZ-CHAIR, VITAL SIGNS: TEMP-98.3, HR-71,RESP-18, B/P-100/52, O2 SAT- 99% ROOM AIR. IV SITE TO LEFT HAND FLUSHED, PATENT AND INTACT. MEROPENEM 1 GM IV STARTED. NO COMPLAINTS, CALL LIGHT IN REACH.
[2021-09-11 22:10] VITALS: BP 102/54; TEMP 98.3
--- NOTE | 2021-09-11 22:10 | NUR ---
PATIENT TO ROOM 1129 VIA LOPEZ-CHAIR FOR ANTIBIOTIC THERAPY. IV SITE TO LEFT HAND PATENT AND INTACT. MEROPENEM 1 GM IV STARTED. NO COMPLAINTS PER PATIENT. CALL LIGHT IN REACH.
[2021-09-11 22:15] VITALS: BP 100/52; TEMP 98.1
--- NOTE | 2021-09-11 22:40 | NUR ---
ANTIBITOIC THERAPY COMPLETED. IV SITE FLUSHED AND PATENT, NO SIGN OF INFILTRATE. PATIENT TOLERATED WELL, NO REACTION NOTED. CALL LIGHT IN REACH.
--- NOTE | 2021-09-11 23:15 | NUR ---
PATIENT TAKEN BACK TO [facility] VIA LOPEZ-CHAIR. IV SITE INTACT AND PATENT, NO SIGN OF INFILTRATE. NO COMPLAINTS VOICED, NO REACTIONS NOTED.
== END 2021-09-11 19:04 | disposition home or self-care (01) ==
LOC: INF 07:31
PROVIDERS: ATTEND Family Medicine
DX: N39.0 Urinary tract infection, site not specified (principal)
CPT/HCPCS: J2185

== ENCOUNTER 2021-09-12 07:30 | Outpatient (CLI) | payer OTHER ==
[~2021-09-12] VITALS: Ht 170.2 cm; Wt 44.5 kg
== END 2021-09-12 20:49 | disposition home or self-care (01) ==
LOC: INF 07:30
PROVIDERS: ATTEND Family Medicine
DX: N39.0 Urinary tract infection, site not specified (principal)
CPT/HCPCS: 96365; 96366; J2185

== ENCOUNTER 2021-09-13 07:56 | Outpatient (CLI) | payer OTHER ==
[~2021-09-13] VITALS: Ht 170 cm; Wt 98.5 kg
[2021-09-13 07:45] VITALS: BP 95/50; TEMP 98.3
[2021-09-13 09:40] VITALS: BP 94/49; TEMP 97.7
== END 2021-09-13 22:00 | disposition home or self-care (01) ==
LOC: INF 07:56
PROVIDERS: ATTEND Family Medicine
DX: N39.0 Urinary tract infection, site not specified (principal)
CPT/HCPCS: 96365; 96366; J2185

== ENCOUNTER 2021-09-14 10:30 | Outpatient (CLI) | payer OTHER ==
[~2021-09-14] VITALS: Ht 170 cm; Wt 98.5 kg
== END 2021-09-14 22:10 | disposition home or self-care (01) ==
LOC: INF 10:30
PROVIDERS: ATTEND Family Medicine
DX: N39.0 Urinary tract infection, site not specified (principal)
CPT/HCPCS: 96365; J2185

== ENCOUNTER 2021-09-15 16:28 | Outpatient (CLI) | payer OTHER | END 2021-09-15 18:53 | disposition home or self-care (01) | LOC: LAB 16:28 | PROVIDERS: ATTEND Family Medicine | DX: J18.9 Pneumonia, unspecified organism (principal) | CPT/HCPCS: 80053 ==

== ENCOUNTER 2021-09-29 08:44 | Outpatient (CLI) | payer OTHER | END 2021-09-29 18:55 | disposition home or self-care (01) | LOC: LAB 08:44 | PROVIDERS: ATTEND Family Medicine | DX: E11.9 Type 2 diabetes mellitus without complications (principal); M81.0 Age-related osteoporosis without current pathological fracture | CPT/HCPCS: 82310; 83036 ==

== ENCOUNTER 2021-09-29 09:48 | Inpatient (IN) | payer OTHER ==
[2021-10-08] MEDS ORDERED: DIVA250T PO (03:59)
[2021-10-23] MEDS ORDERED: 904272561 PO (12:28)
[2021-10-28] MEDS ORDERED: ABILIFY MYCITE15 MG PO (12:00)
[2021-10-28] MEDS ORDERED: DONEPEZIL HYDRO10 MG PO (12:01)
[2021-10-28] MEDS ORDERED: CLARITIN10 M1 PO (12:02)
[2021-10-28] MEDS ORDERED: DIVALPROEX250 M1 PO (12:03)
[2021-10-28] MEDS ORDERED: DITROPAN XL10 MG PO (12:04)
[2021-10-28] MEDS ORDERED: FERROUS SULF325 MG PO (12:04)
[2021-10-28] MEDS ORDERED: INCRUSE EL62.5 MCG/I INH (12:07)
[2021-10-28] MEDS ORDERED: ESCI20TA PO (12:08)
[2021-10-28] MEDS ORDERED: MELATONIN10 M2 PO (12:09)
[2021-10-28] MEDS ORDERED: MOBIC7.5 M1 PO (12:11)
[2021-10-28] MEDS ORDERED: MILK OF MA400 MG/5 M PO (12:11)
[2021-10-28] MEDS ORDERED: PRAVASTATIN 40MG PO (12:13)
[2021-10-28] MEDS ORDERED: DENO60SO SC (12:19)
[2021-10-28] MEDS ORDERED: QUET300T PO (12:20)
[2021-10-28] MEDS ORDERED: VITAMIN D5000 UNI1 PO (12:20)
[2021-10-28] MEDS ORDERED: BUPROPION HYDR300 M1 PO (12:22)
[2021-10-28] MEDS ORDERED: FLUTMIS6 INH (12:22)
[2021-10-28] MEDS ORDERED: AMIODARONE HYD200 MG PO (12:23)
[2021-10-28] MEDS ORDERED: IPRATROPIUM BROMIDE NH NO CHG (12:26)
[2021-10-28] MEDS ORDERED: CIMETIDINE 200200 MG PO (12:32)
[2021-10-28] MEDS ORDERED: CALCIUM 600600 MG PO (12:32)
[2021-10-28] MEDS ORDERED: DIVA500T2 PO (12:34)
[2021-10-28] MEDS ORDERED: DOK100 MG PO (12:44)
[2021-10-28] MEDS ORDERED: MACROBID100 MG PO (16:33)
[2021-10-28] MEDS ORDERED: NYAMYC100000 UNI TOP (16:37)
[2021-10-28] MEDS ORDERED: DOCUSATE SODIUM1 TA1 PO (16:40)
[2021-10-28] MEDS ORDERED: TRIA0.1C19 TOP (16:46)
[2021-10-28] MEDS ORDERED: SYSTANE OPTH (16:50)
[2021-10-28] MEDS ORDERED: PROAIR HFA108 MCG/AC INH (16:53)
[2021-10-28] MEDS ORDERED: IPRATROPIUM/ INH (16:55)
[2021-10-28] MEDS ORDERED: ACET-206 PO (16:56)
[2021-10-28] MEDS ORDERED: TRAMADOL HYDROC50 MG PO (16:57)
== END 2021-10-30 09:11 | disposition still patient (30) ==
LOC: PAVC 09:48
PROVIDERS: ADMIT Family Medicine; ATTEND Family Medicine

== ENCOUNTER 2021-10-07 15:27 | Observation (INO) | payer OTHER ==
[2021-10-07] VITALS (8 sets, daily range): BP systolic 97–128; BP diastolic 43–63; TEMP 97.8
[~2021-10-07] VITALS: Ht 170.2 cm; Wt 103.9 kg
[2021-10-07 16:25] LABS: PLATELET COUNT 201 K/uL (152-353)
[2021-10-07 16:34] LABS: PARTIAL THROMBOPLASTIN TIME 25.3 SECONDS (24.5-33.6)
[2021-10-07 16:36] LABS: POTASSIUM 4.4 mmol/L (3.6-5.2)
[2021-10-08] VITALS: BP 123/61
[2021-10-08 02:15] VITALS: BP 131/59; TEMP 98.5; Ht 170.2 cm; Wt 103.9 kg
[2021-10-08] MEDS ORDERED: DIVA250T PO (03:59)
[2021-10-08 04:00] VITALS: BP 98/53; TEMP 98.1
[2021-10-08 05:40] LABS: PLATELET COUNT 165 K/uL (152-353)
== END 2021-10-08 13:01 ==
LOC: ED 15:27 → MED/SURG 19:00
PROVIDERS: ADMIT Hospitalist; ATTEND Family Medicine
DX: N39.0 Urinary tract infection, site not specified (principal); E86.0 Dehydration; R41.82 Altered mental status, unspecified; D72.818 Other decreased white blood cell count; R53.81 Other malaise; R11.0 Nausea; F25.0 Schizoaffective disorder, bipolar type; F03.90 Unspecified dementia, unspecified severity, without behavioral disturbance, psychotic disturbance, mood disturbance, and anxiety; K21.9 Gastro-esophageal reflux disease without esophagitis; I10 Essential (primary) hypertension; R06.09 Other forms of dyspnea; R53.1 Weakness; R30.0 Dysuria; E11.9 Type 2 diabetes mellitus without complications; I99.8 Other disorder of circulatory system
CPT/HCPCS: 36415; 36600; 51702; 80053; 80164; 81002; 81015; 82550; 82805; 83605; 83735; 83880; 84100; 84484; 85027; 85610; 85730; 87040; 87635; 93005; 94760; 96360; 96361; 96365; 96372; 96375; 99220; 99284; G0378; J1650; J1956; J2405; J3490; U0003

== ENCOUNTER 2021-10-11 06:28 | Outpatient (CLI) | payer OTHER | END 2021-10-11 18:57 | disposition home or self-care (01) | LOC: LAB 06:28 | PROVIDERS: ATTEND Family Medicine | DX: E66.01 Morbid (severe) obesity due to excess calories (principal); R63.4 Abnormal weight loss | CPT/HCPCS: 36415; 84439; 84443 ==

== ENCOUNTER 2021-10-23 14:54 | Outpatient (CLI) | payer OTHER ==
[~2021-10-23 14:54] MED LIST changes: +904272561 PO
[2021-10-23 15:19] LABS: PLATELET COUNT 134 K/uL (152-353)
[2021-10-23 15:24] LABS: POTASSIUM 4.5 mmol/L (3.6-5.2)
== END 2021-10-23 19:57 | disposition home or self-care (01) ==
LOC: LAB 14:54
PROVIDERS: ATTEND Family Medicine
DX: R41.82 Altered mental status, unspecified (principal)
CPT/HCPCS: 80053; 81000; 85027; 87077; 87086; 87088; 87185; 87186

== ENCOUNTER 2021-10-24 14:29 | Emergency (ER) | payer OTHER ==
[~2021-10-24] VITALS: Ht 170.2 cm; Wt 103.9 kg
[2021-10-24 14:32] VITALS: BP 102/66; TEMP 98
== END 2021-10-24 16:59 | disposition home or self-care (01) ==
LOC: ED 14:29
PROC: 0HQ0XZZ Repair Scalp Skin, External Approach (ICD-10-PCS; principal; 2021-10-24)
DX: S09.8XXA Other specified injuries of head, initial encounter (principal); S01.01XA Laceration without foreign body of scalp, initial encounter; W17.89XA Other fall from one level to another, initial encounter; Y92.122 Bedroom in nursing home as the place of occurrence of the external cause
CPT/HCPCS: 99283

== ENCOUNTER 2021-10-28 11:00 | Inpatient (IN) | payer OTHER ==
[~2021-10-28] VITALS: Ht 170.2 cm; Wt 99.9 kg
[2021-10-28 11:12] VITALS: BP 120/50; TEMP 98; Ht 170.2 cm; Wt 99.9 kg
[2021-10-28] MEDS ORDERED: ABILIFY MYCITE15 MG PO (12:00)
[2021-10-28] MEDS ORDERED: DONEPEZIL HYDRO10 MG PO (12:01)
[2021-10-28] MEDS ORDERED: CLARITIN10 M1 PO (12:02)
[2021-10-28] MEDS ORDERED: DIVALPROEX250 M1 PO (12:03)
[2021-10-28] MEDS ORDERED: DITROPAN XL10 MG PO (12:04)
[2021-10-28] MEDS ORDERED: FERROUS SULF325 MG PO (12:04)
[2021-10-28] MEDS ORDERED: INCRUSE EL62.5 MCG/I INH (12:07)
[2021-10-28] MEDS ORDERED: ESCI20TA PO (12:08)
[2021-10-28] MEDS ORDERED: MELATONIN10 M2 PO (12:09)
[2021-10-28] MEDS ORDERED: MILK OF MA400 MG/5 M PO (12:11)
[2021-10-28] MEDS ORDERED: MOBIC7.5 M1 PO (12:11)
[2021-10-28] MEDS ORDERED: PRAVASTATIN 40MG PO (12:13)
[2021-10-28] MEDS ORDERED: DENO60SO SC (12:19)
[2021-10-28] MEDS ORDERED: QUET300T PO (12:20)
[2021-10-28] MEDS ORDERED: VITAMIN D5000 UNI1 PO (12:20)
[2021-10-28 12:22] LABS: PLATELET COUNT 126 K/uL (152-353)
[2021-10-28] MEDS ORDERED: FLUTMIS6 INH (12:22)
[2021-10-28] MEDS ORDERED: BUPROPION HYDR300 M1 PO (12:22)
[2021-10-28] MEDS ORDERED: AMIODARONE HYD200 MG PO (12:23)
[2021-10-28] MEDS ORDERED: IPRATROPIUM BROMIDE NH NO CHG (12:26)
[2021-10-28] MEDS ORDERED: CALCIUM 600600 MG PO (12:32)
[2021-10-28] MEDS ORDERED: CIMETIDINE 200200 MG PO (12:32)
[2021-10-28] MEDS ORDERED: DIVA500T2 PO (12:34)
[2021-10-28 12:41] LABS: POTASSIUM 4.7 mmol/L (3.6-5.2)
[2021-10-28] MEDS ORDERED: DOK100 MG PO (12:44)
[2021-10-28 16:06] VITALS: BP 140/71; TEMP 97.6
[2021-10-28] MEDS ORDERED: MACROBID100 MG PO (16:33)
[2021-10-28] MEDS ORDERED: NYAMYC100000 UNI TOP (16:37)
[2021-10-28] MEDS ORDERED: DOCUSATE SODIUM1 TA1 PO (16:40)
[2021-10-28] MEDS ORDERED: TRIA0.1C19 TOP (16:46)
[2021-10-28] MEDS ORDERED: SYSTANE OPTH (16:50)
[2021-10-28] MEDS ORDERED: PROAIR HFA108 MCG/AC INH (16:53)
[2021-10-28] MEDS ORDERED: IPRATROPIUM/ INH (16:55)
[2021-10-28] MEDS ORDERED: ACET-206 PO (16:56)
[2021-10-28] MEDS ORDERED: TRAMADOL HYDROC50 MG PO (16:57)
[2021-10-28 20:00] VITALS: BP 129/65; TEMP 97.6
[2021-10-29] VITALS: BP 91/58; TEMP 97.7
[2021-10-29 04:00] VITALS: BP 102/43; TEMP 97.6
[2021-10-29 08:00] VITALS: BP 138/86; TEMP 98.1
[2021-10-29 12:00] VITALS: BP 108/75; TEMP 98.2
[2021-10-29 16:00] VITALS: BP 134/59; TEMP 98.6
[2021-10-29 20:00] VITALS: BP 117/52; TEMP 97.8
[2021-10-30 00:15] VITALS: BP 133/55; TEMP 98.2
[2021-10-30 04:15] VITALS: BP 122/56; TEMP 98.2
[2021-10-30 08:00] VITALS: BP 122/96; TEMP 98.6
[2021-10-30 12:00] VITALS: BP 137/66; TEMP 98.3
[2021-10-30 16:00] VITALS: BP 125/50; TEMP 98.4
[2021-10-30 20:00] VITALS: BP 141/76; TEMP 97.6
[2021-10-31 04:15] VITALS: BP 144/48; TEMP 97.9
[2021-10-31 06:39] LABS: PLATELET COUNT 120 K/uL (152-353)
[2021-10-31 07:09] LABS: POTASSIUM 4.1 mmol/L (3.6-5.2)
[2021-10-31 08:11] VITALS: BP 147/76; TEMP 97.8
[2021-10-31 11:54] VITALS: BP 143/71; TEMP 98.1
[2021-10-31 16:21] VITALS: BP 139/81; TEMP 97.9
[2021-10-31 20:00] VITALS: BP 129/74; TEMP 98.2
[2021-11-01] VITALS (7 sets, daily range): BP systolic 118–154; BP diastolic 62–88; TEMP 97.9–98.7
[2021-11-02 04:00] VITALS: BP 119/71; TEMP 98.1
[2021-11-02 07:55] VITALS: BP 139/70; TEMP 98.6
[2021-11-02 12:00] VITALS: BP 126/75; TEMP 98.8
[2021-11-02 16:29] VITALS: BP 134/65; TEMP 98.6
[2021-11-02 20:00] VITALS: BP 136/74; TEMP 97.9
[2021-11-02 23:54] VITALS: BP 140/70; TEMP 98.7
[2021-11-03 04:00] VITALS: BP 88/61; TEMP 97.6
[2021-11-03 07:10] LABS: PLATELET COUNT 144 K/uL (152-353)
[2021-11-03 07:30] LABS: POTASSIUM 3.8 mmol/L (3.6-5.2)
[2021-11-03 08:00] VITALS: BP 114/66; TEMP 97.7
== END 2021-11-03 12:05 | DRG 689 ==
LOC: MED/SURG 11:00
PROVIDERS: Internal Medicine; ADMIT Internal Medicine; ATTEND Internal Medicine
DX: N39.0 Urinary tract infection, site not specified (principal); G93.41 Metabolic encephalopathy; N17.8 Other acute kidney failure; B95.2 Enterococcus as the cause of diseases classified elsewhere; F25.0 Schizoaffective disorder, bipolar type; M81.8 Other osteoporosis without current pathological fracture; K21.9 Gastro-esophageal reflux disease without esophagitis; F03.90 Unspecified dementia, unspecified severity, without behavioral disturbance, psychotic disturbance, mood disturbance, and anxiety; I25.10 Atherosclerotic heart disease of native coronary artery without angina pectoris; E78.49 Other hyperlipidemia; G47.39 Other sleep apnea; J44.9 Chronic obstructive pulmonary disease, unspecified; I48.91 Unspecified atrial fibrillation; Z79.01 Long term (current) use of anticoagulants; I10 Essential (primary) hypertension; F79 Unspecified intellectual disabilities; E11.9 Type 2 diabetes mellitus without complications; E66.01 Morbid (severe) obesity due to excess calories; Z68.36 Body mass index [BMI] 36.0-36.9, adult
CPT/HCPCS: 80053; 80202; 81000; 84443; 85007; 85027; 87077; 87086; 87088; 87185; 87186; 87635; 96365; 96366; 99220; G0378; G0379; J3370; U0003

== ENCOUNTER 2021-10-30 14:33 | Inpatient (IN) | payer OTHER ==
[~2021-10-30 14:33] MED LIST changes: +ABILIFY MYCITE15 MG PO; +ACET-206 PO; +BUPROPION HYDR300 M1 PO; +CALCIUM 600600 MG PO; +CIMETIDINE 200200 MG PO; +DIVALPROEX250 M1 PO; +DOCUSATE SODIUM1 TA1 PO; +DOK100 MG PO; +DONEPEZIL HYDRO10 MG PO; +ESCI20TA PO; +FERROUS SULF325 MG PO; +INCRUSE EL62.5 MCG/I INH; +IPRATROPIUM BROMIDE NH NO CHG; +IPRATROPIUM/ INH; +MACROBID100 MG PO; +MELATONIN10 M2 PO; +MILK OF MA400 MG/5 M PO; +NYAMYC100000 UNI TOP; +PRAVASTATIN 40MG PO; +PROAIR HFA108 MCG/AC INH; +QUET300T PO; +TRAMADOL HYDROC50 MG PO; +TRIA0.1C19 TOP; +VITAMIN D5000 UNI1 PO
== END 2021-11-29 10:36 | disposition still patient (30) ==
LOC: PAVC 14:33
PROVIDERS: ADMIT Family Medicine; ATTEND Family Medicine

== ENCOUNTER 2021-11-13 14:54 | Outpatient (CLI) | payer OTHER | END 2021-11-13 20:55 | disposition home or self-care (01) | LOC: CT 14:54 → LAB 14:54 → CT 15:00 | PROVIDERS: ATTEND Specialist | DX: R33.8 Other retention of urine (principal); N13.2 Hydronephrosis with renal and ureteral calculous obstruction; Q60.0 Renal agenesis, unilateral | CPT/HCPCS: 81000; 87088 ==

== ENCOUNTER 2021-11-15 21:53 | Inpatient (IN) | payer OTHER ==
[~2021-11-15] VITALS: Ht 170.2 cm; Wt 100.2 kg
[2021-11-15 21:55] VITALS: BP 85/49; TEMP 98
[2021-11-15 22:00] VITALS: BP 108/52
[2021-11-15 22:30] VITALS: BP 108/52
[2021-11-15 22:43] LABS: PLATELET COUNT 127 K/uL (152-353)
[2021-11-15 22:50] LABS: POTASSIUM 4.7 mmol/L (3.6-5.2)
[2021-11-15 22:58] LABS: PARTIAL THROMBOPLASTIN TIME 25.2 SECONDS (24.5-33.6)
[2021-11-15 23:00] VITALS: BP 114/53
[2021-11-16] VITALS (13 sets, daily range): BP systolic 107–133; BP diastolic 44–81; TEMP 97.4–98.5; Ht 170.2 cm; Wt 100.2 kg
[2021-11-16 08:40] LABS: POTASSIUM 4.3 mmol/L (3.6-5.2)
[2021-11-16 18:56] LABS: PLATELET COUNT 129 K/uL (152-353)
[2021-11-17] VITALS: BP 144/72; TEMP 98.3
[2021-11-17 04:00] VITALS: BP 93/44; TEMP 98.4
[2021-11-17 05:33] LABS: PLATELET COUNT 114 K/uL (152-353)
[2021-11-17 05:48] LABS: POTASSIUM 4.3 mmol/L (3.6-5.2)
[2021-11-17 08:00] VITALS: BP 103/69; TEMP 98.4
== END 2021-11-17 12:00 | DRG 690 ==
LOC: ED 21:53 → MED/SURG 11-16 06:00
PROVIDERS: Internal Medicine; ADMIT Emergency Medicine; ATTEND Family Medicine
DX: N39.0 Urinary tract infection, site not specified (principal); B96.20 Unspecified Escherichia coli [E. coli] as the cause of diseases classified elsewhere; N13.30 Unspecified hydronephrosis; F25.0 Schizoaffective disorder, bipolar type; M81.8 Other osteoporosis without current pathological fracture; K21.9 Gastro-esophageal reflux disease without esophagitis; F03.90 Unspecified dementia, unspecified severity, without behavioral disturbance, psychotic disturbance, mood disturbance, and anxiety; I25.10 Atherosclerotic heart disease of native coronary artery without angina pectoris; E78.49 Other hyperlipidemia; G47.39 Other sleep apnea; J44.9 Chronic obstructive pulmonary disease, unspecified; I48.91 Unspecified atrial fibrillation; Z79.01 Long term (current) use of anticoagulants; I10 Essential (primary) hypertension; F79 Unspecified intellectual disabilities; E11.9 Type 2 diabetes mellitus without complications; E66.01 Morbid (severe) obesity due to excess calories; Z68.36 Body mass index [BMI] 36.0-36.9, adult; Z90.5 Acquired absence of kidney
CPT/HCPCS: 36415; 80053; 81000; 84443; 84484; 85027; 85610; 85730; 87040; 87077; 87086; 87088; 87186; 87635; 93005; 94664; 94760; 96365; 99284; J0692; J2543; U0003

== ENCOUNTER 2021-11-28 12:20 | Outpatient (CLI) | payer OTHER | END 2021-11-28 18:52 | disposition home or self-care (01) | LOC: LAB 12:20 | PROVIDERS: ATTEND Family Medicine | DX: R41.0 Disorientation, unspecified (principal) | CPT/HCPCS: 81000 ==

== ENCOUNTER 2021-11-29 13:50 | Inpatient (IN) | payer OTHER | END 2021-12-30 12:11 | disposition still patient (30) | LOC: PAVC 13:50 | PROVIDERS: ADMIT Family Medicine; ATTEND Family Medicine ==

== ENCOUNTER 2021-12-01 15:14 | Outpatient (CLI) | payer OTHER ==
[2021-12-01 15:44] LABS: PLATELET COUNT 150 K/uL (152-353)
[2021-12-01 16:03] LABS: POTASSIUM 4.6 mmol/L (3.6-5.2)
== END 2021-12-01 19:32 | disposition home or self-care (01) ==
LOC: LAB 15:14
PROVIDERS: ATTEND Family Medicine
DX: R41.82 Altered mental status, unspecified (principal)
CPT/HCPCS: 80053; 81000; 85027

== ENCOUNTER → 2021-12-02 | Outpatient (CLI) | payer OTHER | LOC: RESP 08:33 | PROVIDERS: ATTEND Family Medicine | DX: I10 Essential (primary) hypertension (principal) ==

== ENCOUNTER 2021-12-30 12:35 | Inpatient (IN) | payer OTHER | END 2022-01-29 15:18 | disposition still patient (30) | LOC: PAVC 12:35 | PROVIDERS: ADMIT Family Medicine; ATTEND Family Medicine ==

== ENCOUNTER → 2021-12-30 | Outpatient (CLI) | payer OTHER ==
[2021-12-30 15:49] LABS: PLATELET COUNT 169 K/uL (152-353)
[2021-12-30 15:52] LABS: POTASSIUM 4.2 mmol/L (3.6-5.2)
== END ==
LOC: LAB 15:22
PROVIDERS: ATTEND Family Medicine
DX: I25.10 Atherosclerotic heart disease of native coronary artery without angina pectoris (principal); I10 Essential (primary) hypertension; Z79.899 Other long term (current) drug therapy; D64.9 Anemia, unspecified
CPT/HCPCS: 80053; 80164; 82306; 83036; 83540; 83735; 85027

== ENCOUNTER 2022-01-07 15:35 | Emergency (ER) | payer OTHER ==
[~2022-01-07] VITALS: Ht 170.2 cm; Wt 100.2 kg
[2022-01-07 15:35] VITALS: TEMP 98
[2022-01-07 16:45] VITALS: BP 138/82
== END 2022-01-07 17:28 ==
LOC: ED 15:35
DX: S00.03XA Contusion of scalp, initial encounter (principal); S70.01XA Contusion of right hip, initial encounter; S60.811A Abrasion of right wrist, initial encounter; S50.811A Abrasion of right forearm, initial encounter; W07.XXXA Fall from chair, initial encounter; Y92.128 Other place in nursing home as the place of occurrence of the external cause
CPT/HCPCS: 99283

== ENCOUNTER 2022-01-18 12:48 | Outpatient (CLI) | payer OTHER ==
[2022-01-18 13:04] LABS: PLATELET COUNT 213 K/uL (152-353)
== END 2022-01-18 20:04 | disposition home or self-care (01) ==
LOC: LAB 12:48
PROVIDERS: ATTEND Family Medicine
DX: R41.82 Altered mental status, unspecified (principal)
CPT/HCPCS: 36415; 81000; 85027

== ENCOUNTER 2022-01-29 15:50 | Inpatient (IN) | payer OTHER | END 2022-03-01 10:49 | disposition still patient (30) | LOC: PAVC 15:50 | PROVIDERS: ADMIT Family Medicine; ATTEND Family Medicine ==

== ENCOUNTER 2022-03-01 13:58 | Inpatient (IN) | payer OTHER | END 2022-04-01 09:25 | disposition still patient (30) | LOC: PAVC 13:58 | PROVIDERS: ADMIT Family Medicine; ATTEND Family Medicine ==

== ENCOUNTER 2022-03-04 10:42 | Emergency (ER) | payer OTHER ==
[~2022-03-04] VITALS: Ht 170.2 cm; Wt 100.2 kg
[2022-03-04 11:57] LABS: PLATELET COUNT 218 K/uL (152-353)
[2022-03-04 12:07] LABS: POTASSIUM 4.3 mmol/L (3.6-5.2)
[2022-03-04 12:11] LABS: PARTIAL THROMBOPLASTIN TIME 25.3 SECONDS (24.5-33.6)
[2022-03-05 01:05] VITALS: BP 104/54; TEMP 98.1
== END 2022-03-05 01:05 | disposition short-term general hospital (02) ==
LOC: ED 10:42
PROVIDERS: Emergency Medicine Emergency Medical Services
PROC: 05HM33Z Insertion of Infusion Device into Right Internal Jugular Vein, Percutaneous Approach (ICD-10-PCS; principal; 2022-03-04)
DX: I82.492 Acute embolism and thrombosis of other specified deep vein of left lower extremity (principal)
CPT/HCPCS: 80053; 84484; 85027; 85610; 85730; 87040; 93005; 96360; 96361; 96365; 96372; 99284; C1768; J1650; J3490; Q9963

== ENCOUNTER 2022-04-01 10:45 | Outpatient (CLI) | payer OTHER | END 2022-04-01 19:09 | disposition home or self-care (01) | LOC: LAB 10:45 | PROVIDERS: ATTEND Family Medicine | DX: E11.9 Type 2 diabetes mellitus without complications (principal) | CPT/HCPCS: 83036 ==

== ENCOUNTER 2022-04-01 12:05 | Inpatient (IN) | payer OTHER | END 2022-04-29 15:18 | disposition still patient (30) | LOC: PAVC 12:05 | PROVIDERS: ADMIT Family Medicine; ATTEND Family Medicine ==

== ENCOUNTER 2022-04-28 15:41 | Outpatient (CLI) | payer OTHER ==
[2022-04-28 15:56] LABS: PLATELET COUNT 194 K/uL (152-353)
[2022-04-28 16:11] LABS: POTASSIUM 4.3 mmol/L (3.6-5.2)
== END 2022-04-28 19:00 | disposition home or self-care (01) ==
LOC: LAB 15:41
PROVIDERS: ATTEND Family Medicine
DX: R53.81 Other malaise (principal); R05.9 Cough, unspecified; R06.02 Shortness of breath; M54.89 Other dorsalgia
CPT/HCPCS: 36415; 80053; 83880; 85027

== ENCOUNTER 2022-04-29 15:53 | Inpatient (IN) | payer OTHER | END 2022-05-30 12:50 | disposition still patient (30) | LOC: PAVC 15:53 | PROVIDERS: ADMIT Family Medicine; ATTEND Family Medicine ==

== ENCOUNTER 2022-05-07 10:07 | Outpatient (CLI) | payer OTHER ==
[2022-05-07 14:52] LABS: PLATELET COUNT 356 K/uL (152-353)
== END 2022-05-07 17:00 ==
LOC: RAD 10:07 → LAB 10:07 → RAD 17:00
PROVIDERS: ATTEND Family Medicine
DX: R05.9 Cough, unspecified (principal); R06.2 Wheezing
CPT/HCPCS: 36415; 83880; 85027

== ENCOUNTER 2022-05-30 13:05 | Inpatient (IN) | payer OTHER | END 2022-06-29 16:41 | disposition still patient (30) | LOC: PAVC 13:05 | PROVIDERS: ADMIT Family Medicine; ATTEND Family Medicine ==

== ENCOUNTER 2022-06-01 12:17 | Outpatient (CLI) | payer OTHER | END 2022-06-01 20:34 | disposition home or self-care (01) | LOC: LAB 12:17 | PROVIDERS: ATTEND Family Medicine | DX: M81.0 Age-related osteoporosis without current pathological fracture (principal) | CPT/HCPCS: 82310 ==

== ENCOUNTER 2022-06-29 07:42 | Outpatient (CLI) | payer OTHER ==
[2022-06-29 08:10] LABS: PLATELET COUNT 196 K/uL (152-353)
[2022-06-29 08:35] LABS: POTASSIUM 4.6 mmol/L (3.6-5.2)
== END 2022-06-29 19:32 | disposition home or self-care (01) ==
LOC: LAB 07:42
PROVIDERS: ATTEND Family Medicine
DX: I10 Essential (primary) hypertension (principal); E11.9 Type 2 diabetes mellitus without complications; I25.10 Atherosclerotic heart disease of native coronary artery without angina pectoris; F20.0 Paranoid schizophrenia; E55.9 Vitamin D deficiency, unspecified; Z79.899 Other long term (current) drug therapy
CPT/HCPCS: 80053; 80151; 80164; 82306; 83036; 83540; 83735; 84443; 85027

== ENCOUNTER 2022-06-29 17:20 | Inpatient (IN) | payer OTHER | END 2022-07-30 11:57 | disposition still patient (30) | LOC: PAVC 17:20 | PROVIDERS: ADMIT Family Medicine; ATTEND Family Medicine ==

== ENCOUNTER 2022-07-30 12:09 | Inpatient (IN) | payer OTHER ==
[~2022-07-30 12:09] MED LIST changes: +IPRATROPIUM BROMIDE NAS; -IPRATROPIUM BROMIDE NH NO CHG; +PACERONE100 MG PO
[2022-08-17] MEDS ORDERED: ZYRTEC ALLGY10 M1 PO (08:13)
[2022-08-17] MEDS ORDERED: ELIQUIS5 MG PO (08:19)
[2022-08-17] MEDS ORDERED: PEPCID40 MG PO (08:21)
[2022-08-17] MEDS ORDERED: BENEPROTEIN6 GM PO (08:24)
[2022-08-17] MEDS ORDERED: GERI-TUSSI100 MG/51 PO (08:27)
[2022-08-17] MEDS ORDERED: NITR0.4S2 SL (08:29)
== END 2022-08-29 17:40 | disposition still patient (30) ==
LOC: PAVC 12:09
PROVIDERS: ADMIT Family Medicine; ATTEND Family Medicine

== ENCOUNTER 2022-08-16 16:28 | Inpatient (IN) | payer OTHER ==
[~2022-08-16] VITALS: Ht 170.2 cm; Wt 104.8 kg
[2022-08-16 16:28] VITALS: BP 123/65; TEMP 98.2
[2022-08-16 17:30] VITALS: BP 132/68
[2022-08-16 19:30] VITALS: BP 109/73
[2022-08-16 19:37] LABS: PLATELET COUNT 265 K/uL (152-353)
[2022-08-16 19:42] LABS: POTASSIUM 4.7 mmol/L (3.6-5.2)
[2022-08-16 22:30] VITALS: BP 137/93
[2022-08-17] VITALS (7 sets, daily range): BP systolic 120–145; BP diastolic 59–79; TEMP 98.2–98.9; Ht 170.2 cm; Wt 104.8 kg
[2022-08-17 04:39] LABS: PLATELET COUNT 260 K/uL (152-353)
[2022-08-17 04:50] LABS: POTASSIUM 4.9 mmol/L (3.6-5.2)
[2022-08-17] MEDS ORDERED: ZYRTEC ALLGY10 M1 PO ×2 (08:13)
[2022-08-17] MEDS ORDERED: ELIQUIS5 MG PO ×2 (08:19)
[2022-08-17] MEDS ORDERED: PEPCID40 MG PO ×2 (08:21)
[2022-08-17] MEDS ORDERED: BENEPROTEIN6 GM PO ×2 (08:24)
[2022-08-17] MEDS ORDERED: GERI-TUSSI100 MG/51 PO ×2 (08:27)
[2022-08-17] MEDS ORDERED: NITR0.4S2 SL ×2 (08:29)
[2022-08-18 00:30] VITALS: BP 97/64; TEMP 98.4
[2022-08-18 04:15] VITALS: BP 108/59; TEMP 98.1
[2022-08-18 07:56] VITALS: BP 105/62; TEMP 97.7
[2022-08-18 08:45] LABS: PLATELET COUNT 249 K/uL (152-353)
[2022-08-18 08:51] LABS: POTASSIUM 4.2 mmol/L (3.6-5.2)
[2022-08-18 12:28] VITALS: BP 125/65; TEMP 98.3
[2022-08-18 16:02] VITALS: BP 114/62; TEMP 99
[2022-08-18 20:28] VITALS: BP 118/68; TEMP 98.5
[2022-08-19 00:28] VITALS: BP 101/48; TEMP 98.6
[2022-08-19 04:28] VITALS: BP 100/49; TEMP 98.1
[2022-08-19 05:22] LABS: PLATELET COUNT 251 K/uL (152-353)
[2022-08-19 05:36] LABS: POTASSIUM 4.5 mmol/L (3.6-5.2)
[2022-08-19 08:07] VITALS: BP 117/54; TEMP 98.3
[2022-08-19 12:28] VITALS: BP 125/63; TEMP 97.7
[2022-08-19 16:28] VITALS: BP 124/61; TEMP 98.5
[2022-08-19 20:28] VITALS: BP 131/57; TEMP 98.4
[2022-08-20] VITALS: BP 121/53; TEMP 98.6
[2022-08-20 04:00] VITALS: BP 125/57; TEMP 98.6
[2022-08-20 08:00] VITALS: BP 124/64; TEMP 97.9
[2022-08-20 12:20] VITALS: BP 131/61; TEMP 98.3
[2022-08-20 16:00] VITALS: BP 129/59; TEMP 98.1
[2022-08-20 20:00] VITALS: BP 120/44; TEMP 98.3
[2022-08-21 04:00] VITALS: BP 127/58; TEMP 98.3
[2022-08-21 05:28] LABS: PLATELET COUNT 245 K/uL (152-353)
[2022-08-21 05:38] LABS: POTASSIUM 4.6 mmol/L (3.6-5.2)
[2022-08-21 08:00] VITALS: BP 119/64; TEMP 98
[2022-08-21 12:00] VITALS: BP 143/64; TEMP 98.6
[2022-08-21 15:56] VITALS: BP 126/53; TEMP 97.9
[2022-08-21 20:00] VITALS: BP 107/58; TEMP 98.7
[2022-08-21 23:33] VITALS: BP 106/52; TEMP 98
[2022-08-22 03:48] VITALS: BP 117/58; TEMP 97.9
[2022-08-22 08:00] VITALS: BP 108/37; TEMP 97.5
[2022-08-22 12:00] VITALS: BP 115/60; TEMP 97.8
== END 2022-08-22 13:15 | DRG 690 ==
LOC: ED 16:28 → MED/SURG 22:11
PROVIDERS: Family Medicine; Internal Medicine; ADMIT Internal Medicine Endocrinology, Diabetes & Metabolism; ATTEND Internal Medicine Endocrinology, Diabetes & Metabolism
DX: N39.0 Urinary tract infection, site not specified (principal); Z16.24 Resistance to multiple antibiotics; B96.29 Other Escherichia coli [E. coli] as the cause of diseases classified elsewhere; E11.9 Type 2 diabetes mellitus without complications; K59.09 Other constipation; R10.84 Generalized abdominal pain; I48.91 Unspecified atrial fibrillation; Z79.01 Long term (current) use of anticoagulants; G89.4 Chronic pain syndrome; K21.9 Gastro-esophageal reflux disease without esophagitis; F41.8 Other specified anxiety disorders; N13.2 Hydronephrosis with renal and ureteral calculous obstruction; Z96.89 Presence of other specified functional implants
CPT/HCPCS: 36415; 51702; 80048; 80053; 81000; 83735; 83880; 84100; 84443; 85027; 87077; 87086; 87088; 87186; 96361; 96365; 96367; 99284; J0743; J2185; J2405; J2543

== ENCOUNTER 2022-08-23 11:22 | Outpatient (CLI) | payer OTHER ==
[~2022-08-23 11:22] MED LIST changes: +ELIQUIS5 MG PO; +GERI-TUSSI100 MG/51 PO; +NITR0.4S2 SL; +PEPCID40 MG PO; +ZYRTEC ALLGY10 M1 PO
[2022-08-23 12:36] LABS: PLATELET COUNT 249 K/uL (152-353)
[2022-08-23 12:38] LABS: POTASSIUM 4.5 mmol/L (3.6-5.2)
== END 2022-08-23 18:52 | disposition home or self-care (01) ==
LOC: LABW 11:22
PROVIDERS: ATTEND Family Medicine
DX: R31.9 Hematuria, unspecified (principal)
CPT/HCPCS: 80053; 81000; 85027

== ENCOUNTER 2022-08-28 11:13 | Outpatient (CLI) | payer OTHER ==
[2022-08-28 12:27] LABS: PLATELET COUNT 207 K/uL (152-353)
== END 2022-08-28 19:12 | disposition home or self-care (01) ==
LOC: LAB 11:13
PROVIDERS: ATTEND Family Medicine
DX: R31.0 Gross hematuria (principal)
CPT/HCPCS: 85027

== ENCOUNTER 2022-09-04 07:53 | Outpatient (CLI) | payer OTHER ==
[2022-09-04 08:11] LABS: PLATELET COUNT 191 K/uL (152-353)
== END 2022-09-04 18:54 | disposition home or self-care (01) ==
LOC: LAB 07:53
PROVIDERS: ATTEND Family Medicine
DX: R31.0 Gross hematuria (principal); Z85.42 Personal history of malignant neoplasm of other parts of uterus
CPT/HCPCS: 85027

== ENCOUNTER 2022-09-11 12:38 | Outpatient (CLI) | payer OTHER ==
[2022-09-11 13:00] LABS: PLATELET COUNT 201 K/uL (152-353)
== END 2022-09-11 18:59 | disposition home or self-care (01) ==
LOC: LAB 12:38
PROVIDERS: ATTEND Family Medicine
DX: R31.0 Gross hematuria (principal)
CPT/HCPCS: 85027

== ENCOUNTER 2022-09-25 06:07 | Outpatient (CLI) | payer OTHER ==
[2022-09-25 07:52] LABS: PLATELET COUNT 194 K/uL (152-353)
== END 2022-09-25 19:19 | disposition home or self-care (01) ==
LOC: LAB 06:07
PROVIDERS: ATTEND Family Medicine
DX: R31.0 Gross hematuria (principal)
CPT/HCPCS: 85027

== ENCOUNTER 2022-09-29 12:50 | Outpatient (CLI) | payer OTHER | END 2022-09-29 20:26 | disposition home or self-care (01) | LOC: LAB 12:50 | PROVIDERS: ATTEND Family Medicine | DX: E11.9 Type 2 diabetes mellitus without complications (principal) | CPT/HCPCS: 36415; 83036 ==

== ENCOUNTER 2022-10-02 06:09 | Outpatient (CLI) | payer OTHER ==
[2022-10-02 10:23] LABS: PLATELET COUNT 207 K/uL (152-353)
[2022-10-02] MEDS ORDERED: OXYGEN (18:13)
== END 2022-10-02 18:59 | disposition home or self-care (01) ==
LOC: LAB 06:09
PROVIDERS: ATTEND Family Medicine
DX: D64.89 Other specified anemias (principal)
CPT/HCPCS: 85027

== ENCOUNTER 2022-10-02 12:41 | Observation (INO) | payer OTHER ==
[~2022-10-02] VITALS: Ht 167.6 cm; Wt 104.1 kg
[2022-10-02 12:41] VITALS: BP 120/54; TEMP 97.5
[2022-10-02 13:00] VITALS: BP 109/60
[2022-10-02 13:07] LABS: PLATELET COUNT 211 K/uL (152-353)
[2022-10-02 13:14] LABS: POTASSIUM 4.4 mmol/L (3.6-5.2)
[2022-10-02 14:00] VITALS: BP 133/46
[2022-10-02 15:00] VITALS: BP 123/57
[2022-10-02 17:31] VITALS: BP 114/60; TEMP 98.9; Ht 167.6 cm; Wt 104.1 kg
[2022-10-02] MEDS ORDERED: OXYGEN (18:13)
[2022-10-02 20:00] VITALS: BP 121/57; TEMP 99
[2022-10-03] VITALS (7 sets, daily range): BP systolic 114–153; BP diastolic 57–80; TEMP 98–99.2
[2022-10-03 05:32] LABS: POTASSIUM 4.5 mmol/L (3.6-5.2)
[2022-10-03 05:36] LABS: PLATELET COUNT 212 K/uL (152-353)
[2022-10-04 03:40] VITALS: BP 110/71; TEMP 98.5
[2022-10-04 05:30] LABS: PLATELET COUNT 213 K/uL (152-353); POTASSIUM 4.7 mmol/L (3.6-5.2)
[2022-10-04 08:00] VITALS: BP 139/84; TEMP 97.9
[2022-10-04] MEDS ORDERED: LEVAQUIN250 MG PO (08:01)
[2022-10-04] MEDS ORDERED: DEXAMETHASON2 MG PO (08:01)
== END 2022-10-04 11:02 ==
LOC: ED 12:41 → MED/SURG 14:44
PROVIDERS: Family Medicine; ADMIT Internal Medicine Endocrinology, Diabetes & Metabolism; ATTEND Internal Medicine Endocrinology, Diabetes & Metabolism
DX: J44.1 Chronic obstructive pulmonary disease with (acute) exacerbation (principal); R07.89 Other chest pain; R06.02 Shortness of breath; R05.9 Cough, unspecified; Z87.891 Personal history of nicotine dependence; K21.9 Gastro-esophageal reflux disease without esophagitis; I48.91 Unspecified atrial fibrillation; Z79.01 Long term (current) use of anticoagulants; F41.8 Other specified anxiety disorders; E78.49 Other hyperlipidemia; M19.90 Unspecified osteoarthritis, unspecified site; G89.4 Chronic pain syndrome
CPT/HCPCS: 36415; 80048; 80053; 82948; 83880; 84484; 85027; 93005; 94664; 94760; 96365; 96366; 96367; 96374; 96375; 96376; 99221; 99283; J1956; G0378; J2930

== ENCOUNTER 2022-10-09 05:33 | Outpatient (CLI) | payer OTHER ==
[~2022-10-09 05:33] MED LIST changes: +DEXAMETHASON2 MG PO; +LEVAQUIN250 MG PO; +OXYGEN
[2022-10-09 05:54] LABS: PLATELET COUNT 158 K/uL (152-353)
== END 2022-10-09 19:12 | disposition home or self-care (01) ==
LOC: LAB 05:33
PROVIDERS: ATTEND Family Medicine
DX: N02.8 Recurrent and persistent hematuria with other morphologic changes (principal)
CPT/HCPCS: 85027

== ENCOUNTER 2022-10-16 05:50 | Outpatient (CLI) | payer OTHER ==
[2022-10-16 07:00] LABS: PLATELET COUNT 223 K/uL (152-353)
== END 2022-10-16 20:23 | disposition home or self-care (01) ==
LOC: LAB 05:50
PROVIDERS: ATTEND Family Medicine
DX: D64.89 Other specified anemias (principal)
CPT/HCPCS: 85027

== ENCOUNTER 2022-10-23 09:33 | Outpatient (CLI) | payer OTHER ==
[2022-10-23 10:17] LABS: PLATELET COUNT 271 K/uL (152-353)
== END 2022-10-23 18:59 | disposition home or self-care (01) ==
LOC: LAB 09:33
PROVIDERS: ATTEND Family Medicine
DX: R31.0 Gross hematuria (principal)
CPT/HCPCS: 85027

== ENCOUNTER 2022-10-30 07:45 | Outpatient (CLI) | payer OTHER ==
[2022-10-30 10:20] LABS: PLATELET COUNT 233 K/uL (152-353)
== END 2022-10-30 20:42 | disposition home or self-care (01) ==
LOC: LAB 07:45
PROVIDERS: ATTEND Family Medicine
DX: R31.0 Gross hematuria (principal)
CPT/HCPCS: 85027

== ENCOUNTER 2022-11-13 07:47 | Outpatient (CLI) | payer OTHER ==
[2022-11-13 08:14] LABS: PLATELET COUNT 148 K/uL (152-353)
== END 2022-11-13 19:09 | disposition home or self-care (01) ==
LOC: LAB 07:47
PROVIDERS: ATTEND Family Medicine
DX: R31.0 Gross hematuria (principal)
CPT/HCPCS: 36415; 85027

== ENCOUNTER 2022-12-04 04:58 | Outpatient (CLI) | payer OTHER ==
[2022-12-04 05:52] LABS: PLATELET COUNT 189 K/uL (152-353)
== END 2022-12-04 18:52 | disposition home or self-care (01) ==
LOC: LAB 04:58
PROVIDERS: ATTEND Family Medicine
DX: R31.0 Gross hematuria (principal)
CPT/HCPCS: 85027

== ENCOUNTER 2022-12-11 05:41 | Outpatient (CLI) | payer OTHER ==
[2022-12-11 07:43] LABS: PLATELET COUNT 203 K/uL (152-353)
== END 2022-12-11 19:42 | disposition home or self-care (01) ==
LOC: LAB 05:41
PROVIDERS: ATTEND Family Medicine
DX: R31.0 Gross hematuria (principal)
CPT/HCPCS: 85027

== ENCOUNTER 2022-12-18 04:50 | Outpatient (CLI) | payer OTHER ==
[2022-12-18 14:05] LABS: PLATELET COUNT 213 K/uL (152-353)
== END 2022-12-18 19:21 | disposition home or self-care (01) ==
LOC: LAB 04:50
PROVIDERS: ATTEND Family Medicine
DX: R31.0 Gross hematuria (principal)
CPT/HCPCS: 85027

== ENCOUNTER 2023-04-16 10:45 | Outpatient (CLI) | payer OTHER ==
[~2023-04-16 10:45] MED LIST changes: +ARIPIPRAZOLE15 MG PO; +BUPROPION PO; +ESCITALOPRAM20 MG PO; +PREDNISONE10 MG PO; +PRESERVISION AREDS 2 PO; +QUETIAPINE300 MG PO
== END 2023-04-16 20:06 | disposition home or self-care (01) ==
LOC: CT 10:45 → LAB 10:45
PROVIDERS: ATTEND Family Medicine
DX: R10.9 Unspecified abdominal pain (principal)
CPT/HCPCS: 81000; 87077; 87086; 87088; 87186